=== PATIENT | female | born 1980 | race Caucasian/White ===

== ENCOUNTER 2023-09-17 00:37 | Emergency (ER) | payer BC, SELFPAY ==
[2023-09-17 00:50] VITALS: BP 117/79; PULSE 78; RESP 18; TEMP 36.6; O2SAT 98; BMI 25.1
--- NOTE | 2023-09-17 01:24 | ED_ITS ---
HPI - General Adult General Chief complaint: Ear/Nose/Throat Problem Stated complaint: ear infection, congestion, vomiting Time Seen by Provider: 09/17/23 00:47 History of Present Illness HPI narrative: 2d of bilat ear pain, nasal drainage, sore throat, chills/ hot flashes, vomit x1. pt took ibuprofen at 2130. 42-year-old woman presenting to the emergency department with concern of a couple of days of ear pain nasal drainage and congestion, sore throat. She has been alternating feeling chilled and hot. Has vomited. Is not complaining of abdominal pain. Has treated with ibuprofen. No rashes. Do not believe has measured a fever specifically. Related Data Previous Rx's Medication Instructions Recorded benzonatate 200 mg capsule 200 mg PO BID-TID PRN cough #21 09/17/23 caps Allergies Allergy/AdvReac Type Severity Reaction Status Date / Time acetaminophen [From Vicodin] AdvReac Verified 09/17/23 00:53 hydrocodone [From Vicodin] AdvReac Verified 09/17/23 00:53 Penicillins AdvReac Verified 09/17/23 00:53 Review of Systems Status of ROS: Reports: 6 or more systems reviewed and unremarkable except as noted in History and below PFSH PFSH Social History Non-prescribed substance use: denies use Exam Narrative: Exam Narrative: Pleasant. Laryngitic. Congested nasopharynx. Oropharynx is generally irritated/erythematous. No cervical lymphadenopathy. Left TM with some bulging erythematous area but generally not thickened. Seems to be more fluid affect. Right TM seems have perforation around the malleus. No inflammatory changes. No facial swelling or erythema though sore to palpation over the forehead. Lungs are otherwise clear. Heart in regular rate and rhythm. Extremities are well perfused without edema. Abdomen nontender. Const: Vital Signs, click to edit/add: Vital Signs - 24 hr 09/17/23 00:50 09/17/23 02:27 09/17/23 02:28 Temperature 97.8 F 97.8 F 97.8 F Pulse Rate [Pulse Oximeter] 78 71 71 Respiratory Rate 18 18 18 Blood Pressure [Ri ght Upper Arm] 117/79 121/78 121/78 Pulse Oximetry 98 98 Oxygen Delivery Me thod Room Air Room Air Documenting provider has reviewed patient's vital signs: yes Course Vital Signs Vital signs: Initial Vital Signs Temperature 97.8 F 09/17/23 00:50 Temperature Source Temporal Artery Scan 09/17/23 00:50 Pulse Rate 78 09/17/23 00:50 Respiratory Rate 18 09/17/23 00:50 Blood Pressure 117/79 09/17/23 00:50 Blood Pressure Mean 91 09/17/23 00:50 Blood Pressure Position Sitting 09/17/23 00:50 Pulse Oximetry 98 09/17/23 00:50 Oxygen Delivery Method Room Air 09/17/23 00:50 Vital Signs Temperature 97.8 F 09/17/23 00:50 Pulse Rate 78 09/17/23 00:50 Respiratory Rate 18 09/17/23 00:50 Blood Pressure 117/79 09/17/23 00:50 Pulse Oximetry 98 09/17/23 00:50 Oxygen Delivery Method Room Air 09/17/23 00:50 Temperature 97.8 F 09/17/23 02:28 Pulse Rate 71 09/17/23 02:28 Respiratory Rate 18 09/17/23 02:28 Blood Pressure 121/78 09/17/23 02:28 Pulse Oximetry 98 09/17/23 02:27 Oxygen Delivery Method Room Air 09/17/23 02:27 Medications Administered Medications: Discontinued Medications Generic Name Dose Route Start Last Admin Trade Name Freq PRN Reason Stop Dose Admin Ondansetron HCl 4 mg 09/17/23 01:37 09/17/23 01:48 Ondansetron Odt 4 Mg Tab PO 09/17/23 01:38 4 mg ONCE ONE Administration Oxymetazoline HCl 1 spray 09/17/23 02:15 09/17/23 02:18 Oxymetazoline 0.05% Nasal [place] NOSTRIL-B 1 spray BID PRN Administration congestion Pseudoephedrine HCl 60 mg 09/17/23 01:37 09/17/23 01:48 Pseudoephedrine Hcl 30 Mg Tablet PO 09/17/23 01:38 60 mg ONCE ONE Administration Medical Decision Making MDM Narrative Medical decision making narrative: Considering community prevalence I would screen for COVID and influenza. Can use triple swab. Otherwise would suspect other nonspecific viral process. Does not have bacterial pharyngitis or frankly an ear infection. Does appear to possibly have a perforation in the TM. As noted has laryngitis. Did offer a dose of Zofran in the emergency department. Triple swab was negative. Stable vitals in the ER Demonstrating some labored breathing at 1 point primarily due to nasal congestion it appeared. Given dosing of Afrin/oxymetazoline in the emergency depart. Sent with this bottle. See patient discharge plan for further discussion Lab Data Lab results reviewed: Yes I reviewed the patient's lab results Labs: Lab Results 09/17/23 Range/Units 00:50 SARS-CoV-2 (PCR) Negative SARS-CoV-2 (Negative) Influenza Type A (PCR) Negative PCR FLU A (Negative) Influenza Type B (PCR) Negative PCR FLU B (Negative) RSV (PCR) Negative PCR RSV (Negative) Discharge Plan Discharge Clinical Impression: Dysfunction of eustachian tube, URI (upper respiratory infection), Laryngitis, Sinusitis Patient Disposition: Home, Self-Care Condition: Improved Additional Instructions: Focus on hydration. I am not sure you have an allergy to acetaminophen. I wonder if that was some nausea from hydrocodone that is also in Vicodin. If you are not allergic, can take up to 1000 mg of acetaminophen per dose. Can also take up to 800 mg of ibuprofen per dose. Your being given a bottle of Afrin (oxymetazoline) nasal spray. You can use that temporarily for nasal decongestion. Can place 2 squirts in each nostril twice daily for up to 5 days at a time but then should give it a break. One of the risks of using it for prolonged period of time is that you can get rebound congestion. Consider sleeping in the midst of a cool mist humidifier. Neti pot and nasal saline rinses might be helpful. Follow kit instructions. Pseudoephedrine can be helpful for drying and decongestion. 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 I like the 12 hour formulation. Might try anesthetic throat lozenges or sprays like Sucrets or Chloraseptic. Can try cough syrup containing guaifenesin and dextromethorphan -- Delsym is one brand to consider if not buying generic It seems to me that you have of perforation of your right tympanic membrane. Your left one was somewhat deformed I think from recent fluid shifts. Consider follow-up with ear nose and throat provider once you're feeling better for further evaluation. Prednisone from [facility] Prescriptions: New benzonatate 200 mg capsule 200 mg PO BID-TID PRN (Reason: cough) Qty: 21 1RF Rx Instructions: Especially for cough that seems to be in the throat Follow Up/Referrals: Provider,Not a Local [Primary Care Provider] - Stand Alone Forms: [employer] Info Instructions
[2023-09-17 01:31] LABS: PCR FLU A Negative PCR FLU A (Negative); PCR FLU B Negative PCR FLU B (Negative); PCR RSV Negative PCR RSV (Negative); SARS PCR* Negative SARS-CoV-2 (Negative)
[2023-09-17] MEDS: ONDANSETRON ODT 4 MG TAB PO (01:48)
[2023-09-17] MEDS: PSEUDOEPHEDRINE HCL 30 MG TABLET 60 MG PO (01:48)
[2023-09-17] MEDS: OXYMETAZOLINE 0.05% NASAL SPRAY 1 SPRAY NOSTRIL-B (02:18)
[2023-09-17 02:27] VITALS: BP 121/78; PULSE 71; RESP 18; TEMP 36.6; O2SAT 98
[2023-09-17 02:28] VITALS: BP 121/78; PULSE 71; RESP 18; TEMP 36.6
== END 2023-09-17 02:28 | disposition home or self-care (01) ==
PROVIDERS: Emergency Provider Family Medicine
DX: J06.9 Acute upper respiratory infection, unspecified (principal); J32.9 Chronic sinusitis, unspecified; H69.93 Unspecified Eustachian tube disorder, bilateral
CPT/HCPCS: 87631; 99283; 99284; A9270

== ENCOUNTER 2023-10-15 11:42 | Emergency (ER) | payer BC, SELFPAY ==
[2023-10-15 11:48] VITALS: BP 116/79; PULSE 58; RESP 20; TEMP 36.4; O2SAT 97; BMI 26.6
--- NOTE | 2023-10-15 12:04 | CT_ITS ---
Patient: WHITNEY ALDANA Facility:?[facility] Patient ID:?[id number] Site Patient ID:?[id number]. Site :?[id number] Study:?CT-Temporal Bone IACS WO-10/15/2023 1:10:19 PM Ordering Physician:KYAW Final Report: INDICATION: Left ear pain, headache TECHNIQUE: CT of the temporal bones without contrast. Coronal and axial small field of view reconstructions of both temporal bones are included. COMPARISON: CT head/IAC report 11/22/2020 FINDINGS: RIGHT temporal bone: External ear: Normal imaged periauricular soft tissues. Normal external auditory canal. Normal tympanic membrane. Middle ear: Nonspecific low attenuation opacification of a few mastoid air cells, favored incidental and similar to prior report. Clear epitympanum, mesotympanum and hypotympanum. Normal ossicular chain. Clear oval and round windows. Normal facial nerve canal. Inner ear: Normal mineralization of the otic capsule. Normal cochlea, vestibule, semicircular canals and vestibular aqueduct. Normal internal auditory canal. Vascular: Normal carotid canal and jugular fossa. LEFT temporal bone: External ear: Normal imaged periauricular soft tissues. Normal external auditory canal. Normal tympanic membrane. Middle ear: Nonspecific low-attenuation opacification of a few mastoid air cells, favored incidental and similar to prior report. Clear epitympanum, mesotympanum and hypotympanum. Normal ossicular chain. Clear oval and round windows. Normal facial nerve canal. Inner ear: Normal mineralization of the otic capsule. Normal cochlea, vestibule, semicircular canals and vestibular aqueduct. Normal internal auditory canal. Vascular: Normal carotid canal and jugular fossa. Imaged head: Lobulated mucosal thickening along the inferior maxillary sinuses, potentially mucous retention cysts/polyps. No sinonasal air-fluid level. Included orbits and intracranial structures are unremarkable for technique. The temporomandibular joints are symmetric and unremarkable. IMPRESSION: 1. Unremarkable CT of the bilateral temporal bones. 2. Bilateral inferior maxillary sinus mucous retention cysts/polyps, without air-fluid level. Please note that all CT scans at this facility use dose modulation, iterative reconstruction, and/or weight-based dosing when appropriate to reduce radiation dose to as low as reasonably achievable. Dictated by Briana Michael MD @ 10/15/2023 1:21:57 PM Signed by:?Briana Michael MD @10/15/2023 1:21:57 PM (Electronic Signature)
--- NOTE | 2023-10-15 12:10 | ED_ITS ---
HPI - Headache General Date Seen: 10/15/23 Chief Complaint: Headache/Migraine Stated Complaint: migraine Time Seen by Provider: 10/15/23 11:43 Source: patient Mode of arrival: ambulatory Limitations: no limitations History of Present Illness HPI Narrative: Patient is a 48-year-old female presenting with left ear pain and a headache. She states she feels like she is having a migraine. She rarely gets migraines but states when they occur they are severe like her current 1 is. Admits to photophobia. Also states she is having severe left ear pain and pain behind the left ear. No history of ear problems she states. Denies fevers, chills, chest pain, shortness of breath, lightheadedness, dizziness, weakness, numbness, abdominal pain. Symptoms started yesterday and she has been taking ibuprofen for pain. Last taken at 04:30. Has not had any improvement in her symptoms with the medication. Denies having ear pain this bad before. No recent swimming. Does note she has had some drainage from the left ear. No other concerns noted Related Data Previous Rx's Medication Instructions Recorded azithromycin 250 mg tablet See Rx Instructions PO .COMPLEX #6 10/15/23 tabs Allergies Allergy/AdvReac Type Severity Reaction Status Date / Time acetaminophen [From Vicodin] AdvReac Verified 10/15/23 11:54 hydrocodone [From Vicodin] AdvReac Verified 10/15/23 11:54 Penicillins AdvReac Verified 10/15/23 11:54 terbutaline Allergy Severe cardiac Uncoded 10/15/23 11:54 arrest Review of Systems Status of ROS: Reports: 10 or more systems reviewed and unremarkable except as noted in History and below [facility] Social History Smoking Status: Never smoker Do you use any of these nicotine containing products: None Second hand tobacco smoke exposure: No How often do you have a drink containing alcohol: never AUDIT-C Alcohol total score: 0 Non-prescribed substance use: denies use Exam Narrative: Exam Narrative: Const: Well-nourished, Well-developed, in moderate distress Eyes: PERRL, no conjunctival injection, and symmetrical lids HENT: Atraumatic external nose and ears. Moist mucous membranes. Erythematous left tympanic membrane with notable tenderness to the auricle and to the mastoid process Neck: Symmetric, trachea midline, No thyromegaly. CVS: RRR, No murmurs or gallops. Peripheral pulses 2+ and equal in all extr emities RESP: Unlabored respiratory effort. Clear to auscultation bilaterally. GI: Nontender/Nondistended, No rebound or guarding. MSK:Extremities w/o deformity, Normal Active ROM Skin: Warm, Dry. No rashes or lesions. Neuro: Normal Muscle tone, No focal neurological deficits. Psych: Awake, Alert, & Oriented x3. Appropriate mood and affect. Const: Vital Signs, click to edit/add: Vital Signs - 24 hr 10/15/23 11:48 Temperature 97.5 F L Pulse Rate [Pulse Oximeter] 58 L Respiratory Rate 20 Blood Pressure [Ri ght Upper Arm] 116/79 Pulse Oximetry 97 Oxygen Delivery Me thod Room Air Course Vital Signs Vital signs: Initial Vital Signs Temperature 97.5 F L 10/15/23 11:48 Temperature Source Temporal Artery Scan 10/15/23 11:48 Pulse Rate 58 L 10/15/23 11:48 Pulse Rhythm Regular 10/15/23 11:48 Pulse Strength 3+ Normal 10/15/23 11:48 Respiratory Rate 20 10/15/23 11:48 Blood Pressure 116/79 10/15/23 11:48 Blood Pressure Mean 91 10/15/23 11:48 Blood Pressure Position Sitting 10/15/23 11:48 Pulse Oximetry 97 10/15/23 11:48 Oxygen Delivery Method Room Air 10/15/23 11:48 Vital Signs Temperature 97.5 F L 10/15/23 11:48 Pulse Rate 58 L 10/15/23 11:48 Respiratory Rate 20 10/15/23 11:48 Blood Pressure 116/79 10/15/23 11:48 Pulse Oximetry 97 10/15/23 11:48 Oxygen Delivery Method Room Air 10/15/23 11:48 Temperature 97.5 F L 10/15/23 11:48 Pulse Rate 58 L 10/15/23 11:48 Respiratory Rate 20 10/15/23 11:48 Blood Pressure 116/79 10/15/23 11:48 Pulse Oximetry 97 10/15/23 11:48 Oxygen Delivery Method Room Air 10/15/23 11:48 Medications Administered Medications: Discontinued Medications Generic Name Dose Route Start Last Admin Trade Name Freq PRN Reason Stop Dose Admin Diphenhydramine HCl 25 mg 10/15/23 12:03 10/15/23 12:40 Diphenhydramine 50 Mg/Ml Inj IVP 10/15/23 12:04 25 mg ONCE ONE Administration Lactated Ringer's 1,000 mls @ 1,000 mls/hr 10/15/23 12:03 10/15/23 12:30 Lactated Ringers 1000 Ml IV 10/15/23 13:02 1,000 mls/hr .Q1H ONE Administration Ketorolac Tromethamine 15 mg 10/15/23 12:03 10/15/23 12:39 Ketorolac 15 Mg/Ml Inj IVP 10/15/23 12:04 15 mg ONCE ONE Administration Metoclopramide HCl 10 mg 10/15/23 12:03 10/15/23 12:40 Metoclopramide Hcl 5 Mg/Ml Inj IVP 10/15/23 12:04 10 mg ONCE ONE Administration MDM - Headache MDM Narrative Medical decision making narrative: Patient is a 42-year-old female presenting for migraine and left ear pain. She is very tender at the mastoid process. She looks otherwise well but I am concerned about mastoiditis at this time. Will do a CT scan to better evaluate this. Left ear is tender to the touch and is erythematous tympanic membrane. Likely has some type of ear infection. Close to cbc and BMP. Migraine cocktail was ordered. Considering she states she has had migraines this bad before in there seems to be coming from her ear I do not believe a full CT scan of the head is necessary. Patient is feeling better after the medications. Lab work shows no concerning findings. CT scan returned showing no signs of mastoiditis or other concerning findings. This is reassuring. I will discharge her home with antibiotics to treat her otitis media. She is agreeable to this plan. Lab Data Labs: Lab Results 10/15/23 Range/Units 12:30 WBC 4.35 L (4.50-11.00) K/uL RBC 4.31 (4.00-5.20) m/uL Hgb 12.8 (12.0-16.0) gm/dL Hct 38.0 (33.0-51.0) % MCV 88 (80-100) fL MCH 30 (26-34) pg MCHC 34 (32-36) gm/dL RDW Coeff of Julia 12.2 (11.5-15.5) % Plt Count 249 (140-440) K/uL Neut % (Auto) 49.4 (42.0-72.0) % Lymph % (Auto) 35.4 (20-44) % [place] % (Auto) 9.0 (0.0-11.0) % Eos % (Auto) 5.3 (0.0-7.0) % Baso % (Auto) 0.9 (0.0-3.0) % Neut # (Auto) 2.10 (1.7-7.0) K/uL Lymph # (Auto) 1.50 (0.90-2.90) K/uL [place] # (Auto) 0.40 (0.00-0.90) K/UL Eos # (Auto) 0.20 (0.00-0.50) K/uL Baso # (Auto) 0.00 (0.00-0.30) K/uL Abs Immat Gran (auto) 0.00 (0.00-0.30) K/uL Imm/Tot Granulo (auto) 0.0 % Sodium 139 (135-149) mmol/L Potassium 3.5 L (3.6-5.1) mmol/L Chloride 109 (96-114) mmol/L Carbon Dioxide 24 (20-32) mmol/L Anion Gap 6 L (7-15) mEq/L BUN 14 (5-24) mg/dL Creatinine 0.6 (0.5-1.5) mg/dL Estimated Creat Clear 114.34 Estimated GFR 115 ml/min Glucose 87 (60-115) mg/dL Calcium 8.7 (8.4-10.6) mg/dL Imaging Data CT scan temporal bone: Attestation: I have reviewed the pertinent imaging results. Radiologist's impression: 1. Unremarkable CT of the bilateral temporal bones. 2. Bilateral inferior maxillary sinus mucous retention cysts/polyps, without air-fluid level. Please note that all CT scans at this facility use dose modulation, iterative reconstruction, and/or weight-based dosing when appropriate to reduce radiation dose to as low as reasonably achievable. Dictated by Briana Michael MD @ 10/15/2023 1:21:57 PM Discharge Plan Discharge Clinical Impression: Migraine Otitis media Qualifiers: Otitis media type: unspecified Laterality: left Qualified Code(s): H66.92 - Otitis media, unspecified, left ear Patient Disposition: Home, Self-Care Condition: Improved Instructions: Migraine Headache (ED) Additional Instructions: Take Tylenol and ibuprofen for pain. Use the antibiotics as directed. Return to emergency department for new or worsening symptoms. If you notice the symptoms seem to be persisting you can follow-up with the primary care provider. Prescriptions: New azithromycin 250 mg tablet See Rx Instructions .ROUTE .COMPLEX Qty: 6 0RF Rx Instructions: For 250 mg dose pack: take 500 mg today (day 1), then 250 mg for 4 days (days 2-5) Follow Up/Referrals: Provider,Not a Local [Primary Care Provider] - Stand Alone Forms: [employer] Info Instructions
[2023-10-15] MEDS: LACTATED RINGERS 1000 ML 1,000 ML IV (12:30)
[2023-10-15 12:37] LABS: Basophils Percent Auto 0.9 % (0.0-3.0); Eosinophils Percent Auto 5.3 % (0.0-7.0); Hemoglobin* 12.8 gm/dL (12.0-16.0); Lymphocytes Percent Auto 35.4 % (20-44); Mean Corpuscular HGB Conc 34 gm/dL (32-36); Mean Corpuscular Hemoglobin 30 pg (26-34); Mean Corpuscular Volume 88 fL (80-100); Neutrophils Percent Auto 49.4 % (42.0-72.0); Platelet Count* 249 K/uL (140-440); RDW Coefficient of Variation % 12.2 % (11.5-15.5); Red Blood Count 4.31 m/uL (4.00-5.20); White Blood Count* 4.35 K/uL (4.50-11.00)
[2023-10-15] MEDS: KETOROLAC 15 MG/ML inj IVP (12:39)
[2023-10-15] MEDS: diphenhydrAMINE 50 MG/ML inj 25 MG IVP (12:40)
[2023-10-15] MEDS: METOCLOPRAMIDE HCL 5 MG/ML INJ 10 MG IVP (12:40)
[2023-10-15 12:52] LABS: Chloride* 109 mmol/L (96-114); Potassium* 3.5 mmol/L (3.6-5.1); Sodium* 139 mmol/L (135-149)
[2023-10-15 12:55] LABS: Anion Gap 6 mEq/L (7-15); Blood Urea Nitrogen* 14 mg/dL (5-24); Carbon Dioxide* 24 mmol/L (20-32); Creatinine* 0.6 mg/dL (0.5-1.5); Est. Creatinine Clearance* 114.34; Estimated Glomerular Filt Rate 115 ml/min; Glucose* 87 mg/dL (60-115)
[2023-10-15 12:56] LABS: Calcium* 8.7 mg/dL (8.4-10.6)
[2023-10-15 13:58] LABS: Slide Review Reflex No
[2023-10-15 14:19] VITALS: BP 110/71; PULSE 68; RESP 18; O2SAT 99
== END 2023-10-15 14:20 | disposition home or self-care (01) ==
PROVIDERS: Emergency Provider Student in an Organized Health Care Education/Training Program
DX: G43.909 Migraine, unspecified, not intractable, without status migrainosus (principal); H66.92 Otitis media, unspecified, left ear
CPT/HCPCS: 36415; 70480; 80048; 85025; 96361; 96374; 96375; 99283; 99284; J1200; J1885; J2765; J7120

== ENCOUNTER 2023-12-26 05:49 | Emergency (ER) | payer BC, SELFPAY ==
[2023-12-26 05:55] VITALS: BP 106/72; PULSE 65; RESP 16; TEMP 36.1; O2SAT 97; BMI 26.8
--- NOTE | 2023-12-26 06:12 | ED.GENADULT ---
HPI - General Adult General Chief complaint: Cough Stated complaint: cough, ear pain Time Seen by Provider: 12/26/23 06:12 History of Present Illness HPI narrative: ear popped last night. sore throat this morning, began vomiting up large amounts of phlegm. pt reports having a headache. 43-year-old woman presenting to the emergency department with concern of recent right? ear discomfort. Seem to pop/clear last night. This morning developed sore throat. Has vomited or spit up good deal of phlegm. She has a headache. No fever noted. No unusual rashes. Was a little congested. Related Data Previous Rx's ?Medication ?Instructions ?Recorded azithromycin 250 mg tablet See Rx Instructions PO .COMPLEX #6 10/15/23 tabs Allergies Allergy/AdvReac Type Severity Reaction Status Date / Time acetaminophen [From Vicodin] AdvReac Verified 10/15/23 11:54 hydrocodone [From Vicodin] AdvReac Verified 10/15/23 11:54 Penicillins AdvReac Verified 10/15/23 11:54 terbutaline Allergy Severe cardiac Uncoded 10/15/23 11:54 arrest Review of Systems Status of ROS: Reports: 6 or more systems reviewed and unremarkable except as noted in History and below PFSH [facility] Social History Smoking Status: Never smoker Do you use any of these nicotine containing products: None Second hand tobacco smoke exposure: No How often do you have a drink containing alcohol: never AUDIT-C Alcohol total score: 0 Non-prescribed substance use: denies use service: No Exam Narrative: Exam Narrative: Pleasant. Seems uncomfortable. Breathing easily. No stridor but voice is hoarse. Lungs are clear. No facial swelling erythema or tenderness. Sounds a little congested. TMs with suggestion of fluid, full, pink but I do not see any infection or marked inflammation. Neck is supple without lymphadenopathy. Heart in regular rate and rhythm. Well-perfused peripherally. Const: Vital Signs, click to edit/add: Vital Signs - 24 hr 12/26/23 05:55 Temperature 96.9 F L Pulse Rate [Left P ulse Oximeter] 65 Respiratory Rate 16 Blood Pressure [Ri ght Upper Arm] 106/72 Pulse Oximetry 97 Oxygen Delivery Me thod Room Air Documenting provider has reviewed patient's vital signs: yes Course Vital Signs Vital signs: Initial Vital Signs Temperature 96.9 F L 12/26/23 05:55 Temperature Source Temporal Artery Scan 12/26/23 05:55 Pulse Rate 65 12/26/23 05:55 Pulse Rhythm Regular 12/26/23 05:55 Respiratory Rate 16 12/26/23 05:55 Blood Pressure 106/72 12/26/23 05:55 Blood Pressure Mean 83 12/26/23 05:55 Blood Pressure Position Sitting 12/26/23 05:55 Pulse Oximetry 97 12/26/23 05:55 Oxygen Delivery Method Room Air 12/26/23 05:55 Vital Signs Temperature 96.9 F L 12/26/23 05:55 Pulse Rate 65 12/26/23 05:55 Respiratory Rate 16 12/26/23 05:55 Blood Pressure 106/72 12/26/23 05:55 Pulse Oximetry 97 12/26/23 05:55 Oxygen Delivery Method Room Air 12/26/23 05:55 Temperature 96.9 F L 12/26/23 05:55 Pulse Rate 65 12/26/23 05:55 Respiratory Rate 16 12/26/23 05:55 Blood Pressure 106/72 12/26/23 05:55 Pulse Oximetry 97 12/26/23 05:55 Oxygen Delivery Method Room Air 12/26/23 05:55 Medications Administered Medications: Discontinued Medications Generic Name Dose Route Start Last Admin Trade Name Freq PRN Reason Stop Dose Admin Ketorolac Tromethamine 10 mg 12/26/23 07:44 12/26/23 07:50 Ketorolac 10 Mg Tablet PO 12/26/23 07:45 10 mg ONCE ONE Administration Medical Decision Making MDM Narrative Medical decision making narrative: She would appreciate something for pain. After discussion settled on oral ketorolac. Would screen otherwise for COVID influenza and strep I suppose. Otherwise appears to have URI. I think a popping of the ear that was described as related to fluid shifts. Labs are negative. Overall improved. Probably would benefit from course of prednisone, decongestant. See patient discharge plan for further discussion Lab Data Lab results reviewed: Yes I reviewed the patient's lab results Labs: Lab Results 12/26/23 Range/Units 06:25 SARS-CoV-2 (PCR) Negative SARS-CoV-2 (Negative) Influenza Type A (PCR) Negative PCR FLU A (Negative) Influenza Type B (PCR) Negative PCR FLU B (Negative) RSV (PCR) Negative PCR RSV (Negative) Group A Strep DNA NOT DETECTED (Not Detectd) Discharge Plan Discharge Clinical Impression: Laryngitis, URI (upper respiratory infection) Patient Disposition: Home w/ Parent or Adult Condition: Stable Additional Instructions: Focus on hydration. Consider sleeping under the mist of a cool mist humidifier. You might try 12 hour pseudoephedrine for drying/decongestion/ear clearing. Can take up to 800 mg of ibuprofen or up to 1000 mg of acetaminophen per dose. Alternative to the ibuprofen might be up to 500 mg naproxen 2 times daily. A course of prednisone from [facility] Prescriptions: No Action azithromycin 250 mg tablet See Rx Instructions .ROUTE .COMPLEX Qty: 6 0RF Rx Instructions: For 250 mg dose pack: take 500 mg today (day 1), then 250 mg for 4 days (days 2-5) Follow Up/Referrals: Provider,Not a Local [Primary Care Provider] - Stand Alone Forms: [employer] Info Instructions
[2023-12-26 07:05] LABS: Strep A DNA Probe* NOT DETECTED (Not Detectd)
[2023-12-26 07:24] LABS: PCR FLU A Negative PCR FLU A (Negative); PCR FLU B Negative PCR FLU B (Negative); PCR RSV Negative PCR RSV (Negative); SARS PCR* Negative SARS-CoV-2 (Negative)
[2023-12-26] MEDS: KETOROLAC 10 MG TABLET PO (07:50)
== END 2023-12-26 08:00 | disposition home or self-care (01) ==
PROVIDERS: Emergency Provider Family Medicine
DX: J04.0 Acute laryngitis (principal); J06.9 Acute upper respiratory infection, unspecified
CPT/HCPCS: 87631; 87651; 99283; 99284; A9270

== ENCOUNTER 2023-12-26 20:25 | Emergency (ER) | payer BC, SELFPAY ==
[2023-12-26 20:44] VITALS: BP 105/72; PULSE 67; RESP 16; TEMP 36.3; O2SAT 97; BMI 26.8
--- NOTE | 2023-12-26 21:04 | CRLHL7_ITS ---
For Patients: As a result of the Cures Act, medical imaging exams and procedure reports are released immediately into your electronic medical record. You may view this report before your referring provider. If you have questions, please contact your health care provider. INDICATION: Chest and back pressure, shortness of breath TECHNIQUE: Chest radiograph 2 views COMPARISON: None FINDINGS: Mediastinum: The mediastinum is normal in appearance. The heart silhouette is normal in size and morphology. Lung: Both lungs are unremarkable in appearance. No sign of pleural effusion seen. No pneumothorax is identified. Bone and Soft tissue: Unremarkable for age. IMPRESSION: 1. No acute cardiopulmonary disease is seen. Dictated by: Gene Whatley MD @ 12/26/2023 23:13:38 (Electronically Signed)
--- NOTE | 2023-12-26 21:06 | ED_ITS ---
HPI - Back Pain/Injury General Chief Complaint: Back Injury/Pain Stated Complaint: Shortness of breath, back/chest pain Time Seen by Provider: 12/26/23 20:57 History of Present Illness HPI Narrative: Patient is a 43-year-old woman who was here earlier today and diagnosed with laryngitis. She slept most of the day and now has pain extending from her back into her anterior chest on the left. She has had no productive cough she has had no fevers no chills no night sweats. She is a previous smoker and vapes regularly. She states she is not at this time. She takes no home medications. She states the pain is sharp with radiation anteriorly worse with a deep breath. Related Data Previous Rx's ?Medication ?Instructions ?Recorded azithromycin 250 mg tablet See Rx Instructions PO .COMPLEX #6 10/15/23 tabs Allergies Allergy/AdvReac Type Severity Reaction Status Date / Time acetaminophen [From Vicodin] AdvReac Verified 10/15/23 11:54 hydrocodone [From Vicodin] AdvReac Verified 10/15/23 11:54 Penicillins AdvReac Verified 10/15/23 11:54 terbutaline Allergy Severe cardiac Uncoded 10/15/23 11:54 arrest Review of Systems Status of ROS: Reports: 10 or more systems reviewed and unremarkable except as noted in History and below PFSH PFS Social History Smoking Status: Never smoker Do you use any of these nicotine containing products: None Second hand tobacco smoke exposure: No How often do you have a drink containing alcohol: never AUDIT-C Alcohol total score: 0 Non-prescribed substance use: denies use service: No Exam Narrative: Exam Narrative: EXAM GENERAL: Patient appears comfortable and well. EYES: No scleral icterus. LYMPH: No supraclavicular or cervical lymphadenopathy. SKIN: Visible skin seen during exam normal or with benign process only. EXT: No dependent lower extremity pedal edema. HEART: Regular rate and rhythm with no murmurs, rubs, or gallops. LUNGS: Clear to auscultation bilaterally with no crackles or wheezes. ABD: Soft, non tender, non distended. PSYCH: Good eye contact, speech is not pressured. Const: Vital Signs, click to edit/add: Vital Signs - 24 hr 12/26/23 20:44 Temperature 97.4 F L Pulse Rate [Left P ulse Oximeter] 67 Respiratory Rate 16 Blood Pressure [Ri ght Upper Arm] 105/72 Pulse Oximetry 97 Oxygen Delivery Me thod Room Air Course Course ED Course: Patient seen and examined. Chest x-ray D-dimer troponin EKG CBC comprehensive metabolic panel pending. Vital Signs Vital signs: Initial Vital Signs Temperature 97.4 F L 12/26/23 20:44 Temperature Source Temporal Artery Scan 12/26/23 20:44 Pulse Rate 67 12/26/23 20:44 Pulse Rhythm Regular 12/26/23 20:44 Respiratory Rate 16 12/26/23 20:44 Blood Pressure 105/72 12/26/23 20:44 Blood Pressure Mean 83 12/26/23 20:44 Blood Pressure Position Sitting 12/26/23 20:44 Pulse Oximetry 97 12/26/23 20:44 Oxygen Delivery Method Room Air 12/26/23 20:44 Vital Signs Temperature 97.4 F L 12/26/23 20:44 Pulse Rate 67 12/26/23 20:44 Respiratory Rate 16 12/26/23 20:44 Blood Pressure 105/72 12/26/23 20:44 Pulse Oximetry 97 12/26/23 20:44 Oxygen Delivery Method Room Air 12/26/23 20:44 Temperature 97.4 F L 12/26/23 20:44 Pulse Rate 67 12/26/23 20:44 Respiratory Rate 16 12/26/23 20:44 Blood Pressure 105/72 12/26/23 20:44 Pulse Oximetry 97 12/26/23 20:44 Oxygen Delivery Method Room Air 12/26/23 20:44 Medications Administered Medications: Generic Name Dose Route Start Last Admin Trade Name Freq PRN Reason Stop Dose Admin Ketorolac Tromethamine 30 mg 12/26/23 22:19 12/26/23 22:45 Ketorolac 30 Mg/Ml Inj IM 12/26/23 22:20 30 mg ONCE ONE Administration MDM - Back Pain/Injury MDM Narrative Medical decision making narrative: Patient is a 43-year-old woman who presents with pleuritic chest pain. She does have a normal EKG normal troponin normal D-dimer normal chest x-ray normal electrolytes normal white count. I did give her 30 mg of Toradol and discharged home to fill the prescription for prednisone that she was prescribed earlier in the week. She can take Tylenol as needed apply ice and follow up with her primary physician as needed. Differential diagnosis includes but not limited to acute myocardial infarction pulmonary embolism pulmonary infarct pneumonia pleural effusion. Pulmonary embolism. Lab Data Labs: Lab Results 12/26/23 Range/Units 21:37 WBC 5.67 (4.50-11.00) K/uL RBC 4.45 (4.00-5.20) m/uL Hgb 13.1 (12.0-16.0) gm/dL Hct 38.9 (33.0-51.0) % MCV 87 (80-100) fL MCH 29 (26-34) pg MCHC 34 (32-36) gm/dL RDW Coeff of Julia 12.1 (11.5-15.5) % Plt Count 144 (140-440) K/uL Neut % (Auto) 45.9 (42.0-72.0) % Lymph % (Auto) 38.1 (20-44) % [place] % (Auto) 9.3 (0.0-11.0) % Eos % (Auto) 6.0 (0.0-7.0) % Baso % (Auto) 0.7 (0.0-3.0) % Neut # (Auto) 2.60 (1.7-7.0) K/uL Lymph # (Auto) 2.16 (0.90-2.90) K/uL [place] # (Auto) 0.50 (0.00-0.90) K/UL Eos # (Auto) 0.34 (0.00-0.50) K/uL Baso # (Auto) 0.04 (0.00-0.30) K/uL Abs Immat Gran (auto) 0.00 (0.00-0.30) K/uL Imm/Tot Granulo (auto) 0.0 % D-Dimer Quant (PE/DVT) 0.25 (0.00-0.50) ug/ml Sodium 137 (135-149) mmol/L Potassium 4.1 (3.6-5.1) mmol/L Chloride 108 (96-114) mmol/L Carbon Dioxide 23 (20-32) mmol/L Anion Gap 6 L (7-15) mEq/L BUN 23 (5-24) mg/dL Creatinine 0.7 (0.5-1.5) mg/dL Estimated Creat Clear 97.01 Estimated GFR 110 ml/min Glucose 111 (60-115) mg/dL Calcium 8.4 (8.4-10.6) mg/dL Total Bilirubin 0.4 (0.1-1.5) mg/dL AST 23 (12-35) U/L ALT 13 (4-35) U/L Alkaline Phosphatase 54 (40-150) U/L Troponin I < 0.01 L (0.01-0.04) ng/mL Total Protein 5.7 L (6.0-8.3) g/dL Albumin 3.4 (3.3-5.0) g/dL Discharge Plan Discharge Clinical Impression: URI (upper respiratory infection) Patient Disposition: Home, Self-Care Condition: Stable Instructions: Upper Respiratory Infection (ED) Additional Instructions: Tylenol Prednisone as previously prescribed Ice Follow-up with your doctor as needed Activity Level: Other Discharge Diet: Other Prescriptions: No Action azithromycin 250 mg tablet See Rx Instructions .ROUTE .COMPLEX Qty: 6 0RF Rx Instructions: For 250 mg dose pack: take 500 mg today (day 1), then 250 mg for 4 days (days 2-5) Follow Up/Referrals: Provider,Not a Local [Primary Care Provider] - Stand Alone Forms: [employer] Info Instructions
--- OUTSIDE RECORDS SUMMARY | 2023-12-26 21:23 | XMS_ITS | Clinical Summary ---
Author Organization [facility] Address [address] [place] [id number] Care Team Providers Care Pipe Puller Name Role Phone Cathy Chiang PA-C Primary Care Provider [phone] Allergies Active Allergy Reactions Criticality Noted Date Comments Bee Venom Protein (Honey Bee) 10/31/2021 Methocarbamol Vomiting 07/03/2017 Other reaction(s): Hypotension Hydrocodone-Acetaminophen 10/31/2021 Penicillins 10/31/2021 Phosphoric Acid Anaphylaxis High 02/19/2015 Quetiapine High 06/09/2020 Other reaction(s): Hypotension 06/08- patient came in orthostatic after being started on seroquel/remeron and strattera Terbutaline 10/31/2021 Tributyl Phosphate Unknown 02/19/2015 Medications Medication Sig Dispensed Refills Start Date End Date Status ibuprofen (ADVIL;MOTRIN) 200 mg oral tablet Take 1 tablet (200 mg) by mouth once a day as needed. 08/27/2022 Active ROZEREM 8 mg oral Tab Take 1 tablet (8 mg) by mouth once daily. 09/18/2022 Active cloNIDine (CATAPRES) 0.3 mg oral tablet Take 1 tablet (0.3 mg) by mouth at bedtime. 03/02/2023 Active lamoTRIgine (LAMICTAL) 100 mg oral tablet Take 1 tablet (100 mg) by mouth once daily. 03/27/2023 Active topiramate (TOPAMAX) 25 mg oral tablet Take 1 tablet (25 mg) by mouth at bedtime. 03/27/2023 Active Cholecalciferol, Vitamin D3, 50 mcg (2,000 unit) oral capsule Take 1 capsule by mouth once daily. 03/24/2023 Active VENTOLIN HFA 90 mcg/actuation Inhl inhaler Inhale 2 puffs every 4 (four) hours as needed for shortness of breath or wheezing. 03/02/2023 Active predniSONE (DELTASONE) 10 mg oral TabIndications:Nasal turbinate hypertrophy,Acute non intractable tension-type headache Take 4 tabs daily for 2 days, then 3 tabs daily for 2 days, then 2 tabs daily for 2 days, then 1 tab daily for 2 days. 20 tablet 07/09/2023 Active ibuprofen (ADVIL) 800 mg oral tablet Take 1 tablet (800 mg) by mouth every 8 (eight) hours as needed (take with food). 30 tablet 1 07/09/2023 Active acetaminophen (TYLENOL) 500 mg oral tablet Take 1-2 tablets (500-1,000 mg) by mouth every 6 (six) hours as needed. 60 tablet 1 07/09/2023 Active Active Problems Problem Noted Date Diagnosed Date Hoarseness 04/24/2023 Chronic nasal congestion 04/24/2023 Alcohol use disorder, severe, dependence 023 Suicide attempt 07/22/2022 Amphetamine use disorder, moderate, dependence 0 02/10/2019 Borderline personality disorder 02/10/2019 Posttraumatic stress disorder 02/10/2019 Family history of MS (multiple sclerosis) 2017 Bipolar 1 disorder, mixed 01/09/2015 Immunizations Name Administration Dates Next Due Influenza 05/01/2021,04/18/2017 Influenza Unspecified 04/18/2017 Pfizer 12+ Yrs MONOVALENT COVID Vaccine 11/06/19 22 Pfizer 12+ Yrs MONOVALENT COVID Vaccine (purple cap) 07/19/2021,05/01/2021 Tdap 10/09/2015 Social History Tobacco Use Types Packs/Day Years Used Date Smoking Tobacco: Former Cigarettes Passive Smoke Exposure: Never Smokeless Tobacco: Never Tobacco Cessation:Counseling Given: Not Answered Alcohol Use Standard Drinks/Week Comments Not Currently 0 (1 standard drink = 0.6 oz pur e alcohol) sober house PHQ-2 Answer Date Recorded PHQ2 Total 1 07/09/2023 Sex and Gender Information Value Date Recorded Sex Assigned at Not on file Gender Identity Not on file Sexual Orientation Not on file Last Filed Vital Signs Vital Sign Reading Time Taken Comments Blood Pressure 118/60 07/09/2023 7:31 AM [employer] Pulse 61 07/09/2023 7:31 AM [employer] Temperature 36.7 ??C (98.1 ??F) 07/09/2023 7:31 AM CS T Respiratory Rate 15 04/01/2023 8:02 AM CDT Oxygen Saturation 98% 07/09/2023 7:31 AM [employer] Inhaled Oxygen Concentration - - Weight 74.4 kg (164 lb) 07/09/2023 7:31 AM [employer] Height 168.9 cm (5' 6.5) 04/01/2023 8:02 AM CDT Body Mass Index 26.07 04/01/2023 8:02 AM CDT Plan of Treatment Health Maintenance Due Date Last Done Comments Diabetes Screening 1980 Hepatitis C Screening 1980 Pap Smear 1980 Pneumococcal <65 (1 of 2 - PCV) 1986 COVID-19 Vaccine (2 4 season) 2023 11/05/2021, 07/19/2021, 05/01/2021 Mammogram Screening 08/12/2023 08/12/2022, 08/12/2022, 09/12/2021, Additional history exists Influenza Vaccine (Season Ended) 2024 05/01/2021, 04/18/2017, 04/18/2017 Anxiety Follow-Up (JOHN-7) 07/09/2024 07/09/2023, Depression Follow-Up (PHQ-9) 07/09/2024 07/09/2023, 04/01/2023 Adult Tetanus Booster 10/08/2025 10/09/2015 Lipid Screening 07/22/2027 07/22/2022 (Prev iously completed) Procedures Procedure Name Priority Date/Time Associated Diagnosis Comments MAMMO ELENA DIAG BILAT Routine 08/12/2022 9:26 AM [employer] from Last 3 Months or Most Recently Relevant to Health Maintenance Care Teams Pipe Puller Relationship Specialty Start Date End Date Cathy Chiang, PACodyC [address] [place] [address] PCP - General Family Medicine 04/01/23
--- OUTSIDE RECORDS SUMMARY | 2023-12-26 21:24 | XMS_ITS | Clinical Summary ---
Author Organization [facility] Address [place], [place] [address] Care Team Providers Care Metal Tile Setter Name Role Phone Armaan Ayala MD Primary Care Prov ider Unavailable Allergies Active Allergy Reactions Criticality Noted Date Comments Penicillins *Unknown 02/19/2015 Penicillins Hives 11/05/2009 Phosphoric Acid Anaphylaxis High 02/19/2015 Methocarbamol Hypotension,Vomiting 07/03/2017 Quetiapine Hypotension High 06/09/202006/08- patient came in orthostatic after being started on seroquel/remeron and strattera Terbutaline Other - Describe In Comment Field 03/17/2012 convulsions Tributyl Phosphate *Unknown 02/19/2015 Venom-Honey Bee Angioedema High 11/07/2020 Hydrocodone-Acetaminop hen Respiratory Distress 12/22/2016 Medications No known medications Active Problems Problem Noted Date Diagnosed Date Syncope and collapse 06/08/2020 Borderline personality disorder 02/10/2019 Amphetamine use disorder, moderate, dependence 0 02/10/2019 Posttraumatic stress disorder 02/10/2019 Family history of MS (multiple sclerosis) 2017 No-show for appointment 08/10/2017 RUQ pain 10/05/2015 Acute cystitis without hematuria 10/05/2015 Cervical high risk HPV (human papillomavirus) te st positive 06/14/2015 Overview: 06/14/15 NIL/HPV+, HPV 16/18 negative 05/06/18 NIL/HPV+ Plan:Colposcopy 05/25/2018 Bipolar 1 disorder, mixed 01/09/2015 cardiac anomaly complicating 201 2 03/19/2012 Insomnia, unspecified 12/12/2009 Gestational diabetes 2012 Resolved Problems Problem Noted Date Diagnosed Date Resolved Date labor in third trimester 12/05/2015 01/18/2016 History of delivery 07/17/2015 01/18/2016 High risk due to h istory of previous obstetrical problem in third trimester 05/21/2015 01/18/2016 Posttraumatic stress disorder 01/09/2015 06/20/2020 Breakthrough bleeding on Nexplanon 10/10/2013 05/14/2015 Spontaneous vaginal delivery 04/03/2012 05/14/2015 Unspecified high-risk pregna ncy 2011--PTL/[id number] wk, GDDM insulin, baby heart changes, 90lb weight gain 03/24/2012 01/18/20 16 Overview: NEXT VISIT ALERTS: 03/30 - Needs HSD adult admit navigator completed at next visit PN labs scanned in from 12/2011 (under incoming records) Staying at [facility] Was hospitalized from 03/17-03/26, PTL LAST GROWTH: 03/19 33w 1d 57% KISHAN 18.1 cm TESTING PLANS: Limited ultrasound weekly, BPP weekly, weekly OB Visits PRIMARY DIAGNOSIS: 03/19 ECHO () Right Ventricular enlargement with poor systolic function Mild to moderate tricuspid valve regurgitation Small pericardial effusion Possible restrictive PDA and pulmonary hypertension Trivial Aortic valve stenosis Labor 03/17- Inpatient at [facility]-D/C'ed 03/26 GDM Betamethasone 03/17-03/18 03/17 GBS NEGATIVE REFERRING PHYSICIAN: Gabi Padilla SPECIALISTS: Cardiology 03/19 Jaun Zamora BOOSTER PUMP OILER: [facility] CARE COORDINATION: Antonieta Arzate Outpatient, Lucia Snider RN CONSULTS: 03/23 Delphine met with inpatient [facility]ura moon NICU 03/19 Per repeat ECHO 3 weeks 03/25-05/06 reservation at [facility] PROCEDURES: MEDS: 03/17-03/18 Betamethasone given Vitamin D plans: 03/25 Prior Auth for Nifedipine GRANTED/faxed to [facility] pharmacy Pertinent/Abnormal LABS: 03/23 Negative Amnisure Rapid GBS NEGATIVE Blood type: O POSTIVE NURSING: Last Tdap vaccine: Flu vaccine given: Non BMI Optimal wt gain Plan for Gestational Diabetes screening:Gest. Diabetic- insulin controlled Planning/Not planning Tubal Ligation Is/Is not Medical assistance GENETICS: Date: Counselor: Plan: MD PLAN OF CARE: labor 03/17/2012 09/14/2012 Supervision of high-risk 03/10/2012 09/14/2012 Overview: Dr. Padilla will resume patient's care following delivery. Would like to see her at 8 weeks . Per Jennifer Pérez (03/24/12) Premature uterine contractions 04/10/2010 09/14/2012 Gestational diabetes 015 Encounters Date Type Department Care Team Description 11/18/2023 1:55 PM CDT Office Visit [facility] [address] [place] [address] Valarie Ridley DO Occ Med (post hospital) 11/18/2023 Travel 11/16/2023 Telephone [facility] [address] [place] [address] Valarie Ridley DO Questions 11/12/2023 11:00 AM CDT - 11/12/2023 12:36 PM CDT Emergency [address] [address] Isaiah Pierre, Laceration of right hand without foreign body, initial encounter (Primary Dx) Discharge Disposition: Home Self Care 11/12/2023 Travel from Last 3 Months Immunizations Name Administration Dates Next Due COVID-19 vaccine (Hupu 30mcg/0.3mL) P F, MDV 07/19/2021,05/01/2021 Influenza A (H1N1), Inactivated (Age >=3 Years) 11/05/2009 Influenza Virus, Unspecified 04/18/2017 Influenza, IIV4 05/01/2021,04/18/2017 Tdap 11/12/2023,10/09/2015 Family History Medical History Relation Name Comments Alcoholism Father Other Father emphysema/MS Cancer Maternal Grandfather leukemi a Arthritis Mother Hypertension Mother Other Mother MS Cancer-breast Other m gr aunt Diabetes Paternal Grandmother insulin dependent diabetic Cancer-colon No Family History Cancer-ovarian No Family History Relation Name Status Comments Brother Alive Daughter 1 Alive Daughter 2 Alive Father Alive Maternal Grandfather Maternal Grandmother Mother Alive Other m gr aunt Paternal Grandfather Paternal Grandmother Sister Alive Son Alive Social History Tobacco Use Types Packs/Day Years Used Date Smoking Tobacco: Former Cigarettes Q uit: 12/05/2020 Smokeless Tobacco: Former Tobacco Cessation:Ready to Q uit: No; Counseling Given: Yes Alcohol Use Standard Drinks/Week Comments No 0 (1 standard drink = 0.6 oz pur e alcohol) PHQ-2 Answer Date Recorded PHQ-2 TOTAL SCORE 0 11/18/2023 Social Connections Answer Date Recorded Frequency of Communication with Friends and Fami ly Not on file 07/13/2021 Financial Resource Strain Answer Date R ecorded Difficulty of Paying Living Expenses Not on file 07/13/2021 Difficulty of Paying Living Expenses Not on file 07/13/2021 Sex and Gender Information Value Date Recorded Sex Assigned at Not on file Gender Identity Not on file Sexual Orientation Not on file Obstetrics History Para Term AB IAB SAB Ectopic Multiple Livin g Live Births 7 4 2 2 3 0 2 0 0 4 1 Date Outcome GA Total Labor Labor/2nd/3rd Weight Sex Type Anes PTL Amelia A1 A5 Name Clin SAB SAB 2000 Term 40w 4d 3.35 kg (7 lb 6 oz) F Vag Y Livin g Coraly nn Complications:None Comments:adopted to [facility] member 2006 AB 11w 0d 2009 Term 38w 0d 2.66 kg (5 lb 14 oz) F Vag N Livin g Clara Complications:Other Excessiv e Bleeding 2011 35w 2d 3.29 kg (7 lb 4.1 oz) M Vag Y Livin g 7 8 Kip Delivery Location:[facility] in/near hospital x6wk with PTL Comments:cardiac anoma ly in baby 2015 36w 3d 2.61 kg (5 lb 12 oz) F Vag IV Meds Y Livin g [address] Cuellar on Complications:None Delivery Location:[facility] Last Filed Vital Signs Vital Sign Reading Time Taken Comments Blood Pressure 126/62 11/18/2023 2:03 PM CDT Pulse 60 11/18/2023 2:03 PM CDT Temperature 36.8 ??C (98.2 ??F) 11/12/2023 1 1:02 AM CDT Respiratory Rate 16 11/12/2023 11:0 2 AM CDT Oxygen Saturation 98% 11/12/2023 11: 02 AM CDT Inhaled Oxygen Concentration - - Weight 75.7 kg (166 lb 12.8 oz) 11/18/2023 2:03 PM CDT Height 167.6 cm (5' 6) 11/12/2023 11:0 2 AM CDT Body Mass Index 26.92 11/12/2023 11:02 AM CDT Plan of Treatment Health Maintenance Due Date Last Done Comments Pneumococcal series for age 6-64 (1 of 2 - PCV) 1986 Hepatitis C screening for ag e 18-79 1998 Pap test for age 21-65 05/06/2021 8, 05/06/2018, 06/14/2015, Additional history exists BMI (ht and wt on same day) for age 18+ 09/12/2022 09/12/2021, 03/08/2019, 07/30/2018, Additional history exists COVID-19 vaccine series ( season) 2023 11/05/2021, 07/19/2021, 05/01/2021 Influenza for age 9-49 03/13/2024 , 04/18/2017, 04/18/2017, Additional history exists Depression screening for age 12+ 11/17/2024 11/18/2023, 10/25/2019, 02/11/2019, Additional history exists Tetanus booster 11/11/2033 11/12/2023, 10/09/2015 HIV for age 15-65 Completed 06/18/2015, 11/05/2009 Tdap Completed 11/12/2023, 10/09/2015 Goals Goal Patient Goal Type Associated Problems Recent Progress Patient-Stated? Author Other - Free Text General Yes Paz Rocha LICSW Note: Yara and headline writer will identify a PCP at [facility] other General Yes Paz Rocha LICSW Note: Yara and Milling General Superintendent will work on finding a Trauma informed EMDR therapist. Other - Free Text General Yes Paz Rocha LICSW Note: Yara and Milling General Superintendent will work on Income based housing options other General Yes Paz Rocha LICSW Note: Milling General Superintendent will help Yara find clothing options for kids going back to school Procedures Procedure Name Priority Date/Time Associated Diagnosis Comments XR HAND 3 VIEWS RIGHT STAT 11/12/2023 11:59 AM CDT PLANT CARE WORKER THIN PREP PAP SCREEN IMAGED Routine 05/06/2018 1:50 PM CDT Screening for cervical cancer ANTI HIV 1/2 Routine 06/18/2015 1:54 PM SYSTEMS TEST TECHNICIAN Supervision of other normal , antepartum, first trimester from Last 3 Months or Most Recently Relevant to Health Maintenance Results * XR HAND 3 VIEWS RIGHT (11/12/2023 11:59 AM CDT) Anatomical Region Laterality Modality HANDS, HAND R Computed Radiogr aphy 11/12/2023 11:5 9 AM CDT Impressions 11/12/2023 12:07 PM CDT No radiodense foreign body is identified. No acute right hand fracture or dislocation. Normal joint spacing. Narrative 11/12/2023 12:07 PM CDT For Patients: As a result of the Cures Act, medical imaging exams and procedure reports are released immediately into your electronic medical record. You may view this report before your referring provider. If you have questions, please contact your health care provider. EXAM: XR HAND 3 VIEWS RIGHT LOCATION: [facility] DATE: 11/12/2023 INDICATION: Trauma, hand injury, concern for foreign body. COMPARISON: None. Procedure Note Kraig Tee MD - 11/12/2023 For Patients: As a result of the Cures Act, medical imagingexams and procedure reports are released immediately into your electronicmedical record. You may view this report before your referring provider.If you have questions, please contact your health care provider. EXAM: XR HAND 3 VIEWS RIGHT LOCATION: [facility] DATE: 11/12/2023 INDICATION: Trauma, hand injury, concern for foreign body. COMPARISON: None. IMPRESSION: No radiodense foreign body is identified. No acute right hand fracture ordislocation. Normal joint spacing. Isaiah Pierre DO GENERAL ANN GING * PLANT CARE WORKER THIN PREP PAP SCREEN IMAGED (05/06/2018 1:50 PM CDT) Case Report Gynecologic Cytology Report ? Case: [id number] ? Authorizing Provider: ??Justyna Houser MD ? Collected: ? 05/06/2018 1350 ? Ordering Location: ? [facility] ?Received: ?05/06/2018 1528 ? Clinic ? First Screen: ?Isaiah Jimenez ? Rescreen: ?Zohra Sapp ? Specimen: ?PLANT CARE WORKER ThinPrep Vial Screening, Cervical ? 05/17/2018 2:26 PM [email or web address] INTERPRETATION /RESULT NEGATIVE FOR INTRAEPITHELIAL LESION OR MALIGNANCY (NIL) (none) 05/17/2018 2:26 PM [facility] NISM(S) Shift in cortney suggestive of bacterial vaginosis 05/17/2018 2:26 PM [email or web address] SPECIMEN ADEQUACY Satisfactory for evaluation Endocervical component present 05/17/2018 2:26 PM [facility] HPV REQUEST HPV and PAP 05/17/2018 2:26 PM SYSTEMS TEST TECHNICIAN [facility] Date of LMP 04/06/2018 05/17/2018 2:26 PM SYSTEMS TEST TECHNICIAN [facility] Last Pap Date 06/14/15 05/17/2018 2:26 PM SYSTEMS TEST TECHNICIAN [facility] Last Pap Result NIL 05/17/2018 2:26 PM SYSTEMS TEST TECHNICIAN [facility] Abnormal Pap or [place] Bx in last 5 years Yes 05/17/2018 2:26 PM [facility] Menstrual Status Regular Periods 05/17/2018 2:26 PM [facility] [place] Bx Done Today No 05/17/2018 2:26 PM [facility] Additional Information None given 05/17/2018 2:26 PM [facility] Automated Review Failed 05/17/2018 2:26 PM [facility] Comment:Processing failed, m anual screening required. ThinPrep Imaging System, [employer] ANCILLARY TESTING PLANT CARE WORKER HPV Ordered, Please see separate report 05/17/2018 2:26 PM SYSTEMS TEST TECHNICIAN [facility] Note The pap test is a screening technique, not a diagnostic procedure. ??It is used primarily to screen for squamous cancers and precursor lesions. ??Published studies have shown that it is subject to both false negative and false positive results. ??The pap test should not be used as the sole means to diagnose or exclude pre-malignant and malignant lesions. Cytology is screened and interpreted at [facility] - [address], [place] [address] and [facility] - [address]; [place] [address] and [facility] - [address]; [place] [address] and [facility] [address]; [place] [address] 05/17/2018 2:26 PM SYSTEMS TEST TECHNICIAN [facility] Other (Cervical) Non-Blood / Unknown 05/06/2018 1:50 PM CDT 05/06/2018 3:28 PM CDT Justyna Houser MD PATHOLOGY/CYTOLOGY Performing Organization Address City/[facility] Co de Phone Number [facility] [address] [place] [address], * ANTI HIV 1/2 (06/18/2015 1:54 PM SYSTEMS TEST TECHNICIAN) HIV-1/HIV-2 ANTIBODY Non-Reacti ve Non-Reacti ve 06/18/2015 7:41 PM SYSTEMS TEST TECHNICIAN [facility] Blood specimen (specimen) BLOOD SPECIMEN / Unknown Venipuncture / Unknown 06/18/2015 1:54 PM SYSTEMS TEST TECHNICIAN 06/18/2015 1:54 PM SYSTEMS TEST TECHNICIAN Narrative [facility] - 06/18/2015 7:41 PM SYSTEMS TEST TECHNICIAN HIV-1 p24 and HIV-1/HIV-2 Ab not detected Yamila Periera DO SEND OUTS [facility] [address] [place] [address], from Last 3 Months or Most Recently Relevant to Health Maintenance Advance Directives * Full Code (Latest Code Status on File) Date Activated Date Inactivated Comments 06/08/2020 7:48 PM 06/10/2020 3:30 PM Question Answer Comments Code Status Discussion: Discussed * Full Code Date Activated Date Inactivated Comments 12/06/2015 12:30 AM 12/07/2015 1:40 PM * Full Code Date Activated Date Inactivated Comments 12/05/2015 7:35 AM 12/05/2015 10:30 AM Question Answer Comments Code Status Discussion: Not Discussed * Full Code Date Activated Date Inactivated Comments 12/05/2015 7:31 AM 12/05/2015 7:35 AM Question Answer Comments Code Status Discussion: Not Discussed * Full Code Date Activated Date Inactivated Comments 12/05/2015 1:32 AM 12/05/2015 5:08 AM Care Teams Metal Tile Setter Relationship Specialty Start Date End Date Armaan Ayala MD PCP - General Family Practice 07/11/23
--- OUTSIDE RECORDS SUMMARY | 2023-12-26 21:24 | XMS_ITS | Referral Summary ---
Author Organization [facility] Address [address] [place] [address] Care Team Providers Care Lacquer Polisher Name Role Phone Cathy Chiang PA-C Primary Care Provider [phone] Allergies Active Allergy Reactions Criticality Noted Date [...] Comments Blood Pressure 118/60 07/09/2023 7:31 AM BRANCH MANAGER Pulse 61 07/09/2023 7:31 AM BRANCH MANAGER Temperature 36.7 ??C (98.1 ??F) 07/09/2023 7:31 AM CS T Respiratory Rate 15 04/01/2023 8:02 AM CDT Oxygen Saturation 98% 07/09/2023 7:31 AM BRANCH MANAGER Inhaled Oxygen Concentration - - Weight 74.4 kg (164 lb) 07/09/2023 7:31 AM BRANCH MANAGER Height 168.9 cm (5' 6.5) 04/01/2023 8:02 AM CDT Body Mass Index 26.07 04/01/2023 8:02 AM CDT Plan of Treatment Not on file Procedures Procedure Name Priority Date/Time Associated Diagnosis Comments MAMMO ELENA DIAG BILAT Routine 08/12/2022 9:26 AM BRANCH MANAGER from Last 3 Months or Most Recently Relevant to Health Maintenance Care Teams Lacquer Polisher Relationship Specialty Start Date End Date Cathy Chiang PA-C [address] [place] [address] PCP - General Family Medicine 04/01/23
[2023-12-26 22:04] LABS: Basophils Absolute Auto 0.04 K/uL (0.00-0.30); Basophils Percent Auto 0.7 % (0.0-3.0); Eosinophils Absolute Auto 0.34 K/uL (0.00-0.50); Hematocrit 38.9 % (33.0-51.0); Hemoglobin* 13.1 gm/dL (12.0-16.0); Lymphocytes Absolute Auto 2.16 K/uL (0.90-2.90); Lymphocytes Percent Auto 38.1 % (20-44); Mean Corpuscular HGB Conc 34 gm/dL (32-36); Mean Corpuscular Hemoglobin 29 pg (26-34); Mean Corpuscular Volume 87 fL (80-100); Monocytes Percent Auto 9.3 % (0.0-11.0); Neutrophils Percent Auto 45.9 % (42.0-72.0); Platelet Count* 144 K/uL (140-440); RDW Coefficient of Variation % 12.1 % (11.5-15.5); Red Blood Count 4.45 m/uL (4.00-5.20); White Blood Count* 5.67 K/uL (4.50-11.00)
[2023-12-26 22:05] LABS: Slide Review Reflex No
[2023-12-26 22:23] LABS: Albumin* 3.4 g/dL (3.3-5.0); Chloride* 108 mmol/L (96-114); Potassium* 4.1 mmol/L (3.6-5.1); Sodium* 137 mmol/L (135-149)
[2023-12-26 22:26] LABS: Alanine Aminotransferase* 13 U/L (4-35); Alkaline Phosphatase* 54 U/L (40-150); Anion Gap 6 mEq/L (7-15); Aspartate Amino Transferase* 23 U/L (12-35); Bilirubin Total* 0.4 mg/dL (0.1-1.5); Blood Urea Nitrogen* 23 mg/dL (5-24); Carbon Dioxide* 23 mmol/L (20-32); Creatinine* 0.7 mg/dL (0.5-1.5); Est. Creatinine Clearance* 97.01; Estimated Glomerular Filt Rate 110 ml/min; Glucose* 111 mg/dL (60-115); Total Protein* 5.7 g/dL (6.0-8.3)
[2023-12-26 22:27] LABS: Calcium* 8.4 mg/dL (8.4-10.6)
[2023-12-26 22:29] LABS: D Dimer Quantitative* 0.25 ug/ml (0.00-0.50)
[2023-12-26 22:39] LABS: Troponin I* < 0.01 ng/mL (0.01-0.04)
[2023-12-26] MEDS: KETOROLAC 30 MG/ML inj IM (22:45)
== END 2023-12-26 23:59 | disposition home or self-care (01) ==
PROVIDERS: Emergency Provider Internal Medicine
DX: J06.9 Acute upper respiratory infection, unspecified (principal)
CPT/HCPCS: 36415; 71046; 80053; 84484; 85025; 85379; 93005; 96372; 99283; 99284; J1885

== ENCOUNTER 2024-03-03 21:32 | Emergency (ER) | payer BC, SELFPAY ==
[2024-03-03 21:38] VITALS: BP 115/74; PULSE 89; RESP 16; TEMP 36.1; O2SAT 98; BMI 26.2
--- NOTE | 2024-03-03 21:46 | ED.EAR ---
HPI - Ear Problem General Time Seen by Provider: 21:46 Date Seen: 03/03/24 Chief complaint: Ear/Nose/Throat Problem Stated complaint: Left ear pain Time Seen by Provider: 03/03/24 21:45 Source: patient and RN notes reviewed Mode of arrival: ambulatory Limitations: no limitations History of Present Illness HPI Narrative: This 43-year-old female is coming in with left ear pain. She has had no fevers. She has actually had some nausea vomiting and diarrhea the last couple days. She has been in bed sick. There has been no fevers. The ear pain is been there for about 3 days, is getting worse tonight. She is hearing muffled sounds in the ear. She is getting shooting pains from the ear into her jaw when she chews. The pain does go above the ear with chewing as well. It is not in the joint itself but hurts into the ear when she does chew. No sore throat. She does note that she cleans her ears with Q-tips. She has noticed no drainage from the ear. She denies any other respiratory symptoms with this. MD Complaint: ear pain and decreased hearing Location: left ear Related Data Previous Rx's ?Medication ?Instructions ?Recorded azithromycin 250 mg tablet See Rx Instructions PO .COMPLEX #6 10/15/23 tabs Allergies Allergy/AdvReac Type Severity Reaction Status Date / Time terbutaline AdvReac Severe Agitated Verified 03/03/24 21:42 acetaminophen [From Vicodin] AdvReac Verified 03/03/24 21:42 hydrocodone [From Vicodin] AdvReac Verified 03/03/24 21:42 Penicillins AdvReac Verified 03/03/24 21:42 Review of Systems Narrative: As per HPI. PFSH PFSH Social History Smoking Status: Never smoker Do you use any of these nicotine containing products: None Second hand tobacco smoke exposure: No How often do you have a drink containing alcohol: never AUDIT-C Alcohol total score: 0 Non-prescribed substance use: denies use service: No Exam Const: Vital Signs, click to edit/add: Vital Signs - 24 hr 03/03/24 21:38 Temperature 97 F L Pulse Rate [Right Pulse Oximeter] 89 Respiratory Rate 16 Blood Pressure [Ri ght Upper Arm] 115/74 Pulse Oximetry 98 Oxygen Delivery Me thod Room Air This 43-year-old female is alert, interactive, no apparent distress. Face atraumatic. Pupils equal round reactive, sclera clear. Both of her canals are quite small and difficult to visualize her tympanic membranes. The left canal though has some mild erythema, is definitely more swollen than the right. She is tender within the canal when I attempt to retract her ear back, if I press on the tragus. She can fully open and close her jaw, the pain does not isolated over the jaw. Speech is normal. Neck is supple, no adenopathy. CV regular rate and rhythm no murmur. Documenting provider has reviewed patient's vital signs: yes Course Course ED Course: Discussed with patient that I cannot visualize the tympanic membrane. There certainly could be a component of otitis externa, cannot rule out otitis media. There is no identifiable drainage in the canal. She would like drops from [facility]. The only ear drops we have in there are the Cortisporin otic. She is allergic to penicillins, will give her Z-Jarrett with the ear drops. She understands if these are not helping to treat her ear symptoms, consideration for TMJ or alternate etiologies or failure of these medicines need to be considered. She does have a follow-up this next week in clinic. That certainly would be a great time to have her ear rechecked. Did discuss testing for COVID with patient, reviewed that we are seen a lot of GI symptomatology with COVID. She has an upcoming event where she is going to be around a lot of people, would like to test for this. We will allow her to discharge to home and contact her with her result. It is not going to change our management here tonight. Vital Signs Vital signs: Initial Vital Signs Temperature 97 F L 03/03/24 21:38 Temperature Source Temporal Artery Scan 03/03/24 21:38 Pulse Rate 89 03/03/24 21:38 Pulse Rhythm Regular 03/03/24 21:38 Pulse Strength 3+ Normal 03/03/24 21:38 Respiratory Rate 16 03/03/24 21:38 Blood Pressure 115/74 03/03/24 21:38 Blood Pressure Mean 87 03/03/24 21:38 Blood Pressure Position Supine 03/03/24 21:38 Pulse Oximetry 98 03/03/24 21:38 Oxygen Delivery Method Room Air 03/03/24 21:38 Vital Signs Temperature 97 F L 03/03/24 21:38 Pulse Rate 89 03/03/24 21:38 Respiratory Rate 16 03/03/24 21:38 Blood Pressure 115/74 03/03/24 21:38 Pulse Oximetry 98 03/03/24 21:38 Oxygen Delivery Method Room Air 03/03/24 21:38 Temperature 97 F L 03/03/24 21:38 Pulse Rate 89 03/03/24 21:38 Respiratory Rate 16 03/03/24 21:38 Blood Pressure 115/74 03/03/24 21:38 Pulse Oximetry 98 03/03/24 21:38 Oxygen Delivery Method Room Air 03/03/24 21:38 Medical Decision Making Lab Data Lab results reviewed: Yes I reviewed the patient's lab results Labs: Lab Results 03/03/24 Range/Units 21:56 SARS-CoV-2 (PCR) Negative SARS-CoV-2 (Negative) Discharge Plan Discharge Clinical Impression: Otitis externa Qualifiers: Otitis externa type: unspecified type Chronicity: acute Laterality: left Qualified Code(s): H60.502 - Unspecified acute noninfective otitis externa, left ear Patient Disposition: Home, Self-Care Condition: Stable Instructions: Ear Infection (ED) Additional Instructions: Take the antibiotics in use the ear drops as prescribed. The ear drops or 3 drops to the left ear 3 times a day for 7 days. Follow the dose instructions for the Z-Jarrett. Can use Tylenol and ibuprofen if needed for pain control. We will contact you if your COVID test is positive. If you do not hear from us you can presume it is negative. If you are not improving, feel you are worsening or have further concerns, please seek re-evaluation. Activity Level: Activity as Tolerated Prescriptions: No Action azithromycin 250 mg tablet See Rx Instructions .ROUTE .COMPLEX Qty: 6 0RF Rx Instructions: For 250 mg dose pack: take 500 mg today (day 1), then 250 mg for 4 days (days 2-5) Follow Up/Referrals: Provider,Not a Local [Primary Care Provider] - Stand Alone Forms: [employer] Info Instructions
--- OUTSIDE RECORDS SUMMARY | 2024-03-03 22:05 | XMS_ITS | Clinical Summary ---
Author Organization [email or web address] Address [place], [place] [address] Care Team Providers Care Abstracter Name Role Phone Armaan Ayala MD Primary Care Prov ider Allergies Active Allergy Reactions Criticality Noted Date [...] delivery 04/03/2012 05/14/2015 Unspecified high-risk pregna ncy 2011--PTL/bfppiu70 wk, GDDM insulin, baby heart changes, 90lb weight gain 03/24/2012 01/18/20 16 Overview: NEXT VISIT ALERTS: 03/30 - Needs HSD adult admit navigator completed at next visit PN labs scanned in from 12/2011 (under incoming records) Staying at [facility] Was hospitalized from 03/17-03/26, PTL LAST GROWTH: 03/19 33w 1d 57% KISHAN 18.1 cm TESTING PLANS: Limited ultrasound weekly, BPP weekly, weekly OB Visits PRIMARY DIAGNOSIS: 03/19 ECHO () Right Ventricular enlargement with poor systolic function Mild to moderate tricuspid valve regurgitation Small pericardial effusion Possible restrictive PDA and pulmonary hypertension Trivial Aortic valve stenosis Labor 03/17- Inpatient at [facility]/C'ed 03/26 GDM Betamethasone 03/17-03/18 03/17 GBS NEGATIVE REFERRING PHYSICIAN: Gabi Padilla SPECIALISTS: Cardiology 03/19 Jaun Zamora FOREST E[employer]ICS PROFESSOR: Aura CARE COORDINATION: Antonieta Arzate Outpatient, Lucia Snider RN CONSULTS: 03/23 Delphine met with inpatient Aura schmitz NICU 03/19 Per repeat ECHO 3 weeks 03/25-05/06 reservation at [facility] PROCEDURES: MEDS: 03/17-03/18 Betamethasone given Vitamin D plans: 03/25 Prior Auth for Nifedipine GRANTED/faxed to [facility] pharmacy Pertinent/Abnormal LABS: 03/23 Negative Amnisure Rapid GBS NEGATIVE Blood type: O POSTIVE NURSING: Last Tdap vaccine: Flu vaccine given: Non BMI Optimal wt gain Plan for Gestational Diabetes screening:Gest. Diabetic- insulin controlled Planning/Not planning Tubal Ligation Is/Is not Medical assistance GENETICS: Date: Counselor: Plan: PLAN OF CARE: labor 03/17/2012 09/14/2012 Supervision of high-risk 03/10/2012 09/14/2012 Overview: Dr. Padilla will resume patient's care following delivery. Would like to see her at 8 weeks . Per Jennifer Pérez (03/24/12) Premature uterine contractions 04/10/2010 09/14/2012 Gestational diabetes 015 Immunizations Name Administration Dates Next Due COVID-19 vaccine (iCurrent 30mcg/0.3mL) P F, MDV 07/19/2021,05/01/2021 Influenza A [...] Livin g Coraly nn Complications:None Comments:[facility] AB 11w 0d 2009 Term 38w 0d 2.66 kg (5 lb 14 oz) F Vag N Livin g Clara Complications:Other Excessiv e Bleeding 2011 35w 2d 3.29 kg (7 lb 4.1 oz) M Vag Y Livin g 7 8 Kip Delivery Location:[facility] Comments:cardiac anoma ly in baby 2015 36w 3d 2.61 kg (5 lb 12 oz) F Vag IV Meds Y Livin g [address] Cuellar on Complications:None Delivery Location:[facility] Last Filed Vital Signs Vital Sign Reading [...] 11/12/2023 11:02 AM CDT Plan of Treatment Upcoming Encounters Date Type Department Care Team (Late st Contact Info) Description 03/08/2024 11:30 AM CDT Office Visit [facility] [address] [place] [address] Sabrina Gee MD [address] [place] [address] Health Maintenance Due Date Last Done Comments [...] Yes Paz Rocha LICSW Note: Yara and sports writer will identify a PCP at [facility] other General Yes Paz Rocha LICSW Note: Yara and Game Designer/Creative Director will work on finding a Trauma informed EMDR therapist. Other - Free Text General Yes Paz Rocha LICSW Note: Yara and Game Designer/Creative Director will work on Income based housing options other General Yes Paz Rocha LICSW Note: Game Designer/Creative Director will help Yara find clothing options for kids going back to school Procedures Procedure Name Priority Date/Time Associated Diagnosis Comments HAND SEWER THIN PREP PAP SCREEN IMAGED Routine 05/06/2018 1:50 PM CDT Screening for cervical cancer ANTI HIV 1/2 Routine 06/18/2015 1:54 PM PRESCHOOL ASSISTANT TEACHER Supervision of other normal , antepartum, first trimester from Last 3 Months or Most Recently Relevant to Health Maintenance Results * HAND SEWER THIN PREP PAP SCREEN IMAGED (05/06/2018 1:50 PM CDT) Pathologist [facility] Case Report Gynecologic Cytology Report ? Case: [id number] ? Authorizing Provider: ??Justyna Houser MD ? Collected: ? 05/06/2018 1350 ? Ordering Location: ? [facility] ?Received: ?05/06/2018 1528 ? Clinic ? First Screen: ?Isaiah Jimenez ? Rescreen: ?Zohra Sapp ? Specimen: ?HAND SEWER ThinPrep Vial Screening, Cervical ? 05/17/2018 2:26 PM [facility] Connolly [facility] INTERPRETATION /RESULT NEGATIVE FOR INTRAEPITHELIAL LESION OR MALIGNANCY (NIL) (none) 05/17/2018 2:26 PM [facility] NISM(S) Shift in cortney suggestive of bacterial vaginosis 05/17/2018 2:26 PM PRESCHOOL ASSISTANT TEACHER [facility] Connolly [facility] SPECIMEN ADEQUACY Satisfactory for evaluation Endocervical component present 05/17/2018 2:26 PM [facility] HPV REQUEST HPV and PAP 05/17/2018 2:26 PM PRESCHOOL ASSISTANT TEACHER [facility] Date of LMP 04/06/2018 05/17/2018 2:26 PM [facility] Last Pap Date 06/14/15 05/17/2018 2:26 PM PRESCHOOL ASSISTANT TEACHER [facility] Last Pap Result NIL 05/17/2018 2:26 PM PRESCHOOL ASSISTANT TEACHER [facility] Abnormal Pap or Risco Bx in last 5 years Yes 05/17/2018 2:26 PM [facility] Menstrual Status Regular Periods 05/17/2018 2:26 PM PRESCHOOL ASSISTANT TEACHER [facility] Risco Bx Done Today No 05/17/2018 2:26 PM [facility] Additional Information None given 05/17/2018 2:26 PM [facility] Automated Review Failed 05/17/2018 2:26 PM [facility] Comment:Processing failed, m anual screening required. ThinPrep Imaging System, [employer] ANCILLARY TESTING HAND SEWER HPV Ordered, Please see separate report 05/17/2018 2:26 PM PRESCHOOL ASSISTANT TEACHER [facility] Note The pap test is [...] lesions. Cytology is screened and interpreted at [facility] - [address], [place] [address] and [facility] - [address]; [place] [address] [facility] - [address]; [place] [address] and [facility] [address]; [place] [address] 05/17/2018 2:26 PM PRESCHOOL ASSISTANT TEACHER [facility] Other (Cervical) Non-Blood / Unknown 05/06/2018 1:50 PM CDT 05/06/2018 3:28 PM CDT Justyna Houser MD PATHOLOGY/CYTOLOGY Performing Organization Address City/[facility]/ZIP Co de Phone Number [facility] [address] [place] [address], [place] * ANTI HIV 1/2 (06/18/2015 1:54 PM PRESCHOOL ASSISTANT TEACHER) HIV-1/HIV-2 ANTIBODY Non-Reacti ve Non-Reacti ve 06/18/2015 7:41 PM PRESCHOOL ASSISTANT TEACHER [facility] TRAL [facility] Blood specimen (specimen) BLOOD SPECIMEN / Unknown Venipuncture / Unknown 06/18/2015 1:54 PM PRESCHOOL ASSISTANT TEACHER 06/18/2015 1:54 PM PRESCHOOL ASSISTANT TEACHER Narrative [facility] - 06/18/2015 7:41 PM PRESCHOOL ASSISTANT TEACHER HIV-1 p24 and HIV-1/HIV-2 Ab not detected Yamila Pereira DO SEND OUTS Performing Organization Address City/[facility]/ZIP Co de Phone Number [facility] [address] [place] [address], [place] from Last 3 Months or Most Recently [...] 1:32 AM 12/05/2015 5:08 AM Care Teams Abstracter Relationship Specialty Start Date End Date Armaan Ayala MD [address] [place] [phone] PCP - General Family Practice 07/11/23
--- OUTSIDE RECORDS SUMMARY | 2024-03-03 22:05 | XMS_ITS | Referral Summary ---
Author Organization [facility] Address [address] [place] [address] Care Team Providers Care Public Health Professor Name Role Phone Cathy Chiang PA-C Primary Care Provider [phone] Allergies Active Allergy Reactions Criticality Noted Date [...] Immunizations Name Administration Dates Next Due Influenza Unspecified 04/18/2017 Influenza, recombinant, quadrivalent, PF 021,04/18/2017 Pfizer 12+ Yrs MONOVALENT COVID Vaccine 11/06/19 [...] Comments Blood Pressure 118/60 07/09/2023 7:31 AM MIRROR DEPARTMENT SUPERVISOR Pulse 61 07/09/2023 7:31 AM MIRROR DEPARTMENT SUPERVISOR Temperature 36.7 ??C (98.1 ??F) 07/09/2023 7:31 AM CS T Respiratory Rate 15 04/01/2023 8:02 AM CDT Oxygen Saturation 98% 07/09/2023 7:31 AM MIRROR DEPARTMENT SUPERVISOR Inhaled Oxygen Concentration - - Weight 74.4 kg (164 lb) 07/09/2023 7:31 AM MIRROR DEPARTMENT SUPERVISOR Height 168.9 cm (5' 6.5) 04/01/2023 8:02 AM CDT Body Mass Index 26.07 04/01/2023 8:02 AM CDT Plan of Treatment Not on file Care Teams Public Health Professor Relationship Specialty Start Date End Date Cathy Chiang PA-C [address] [place] [address] PCP - General Family Medicine 04/01/23
--- OUTSIDE RECORDS SUMMARY | 2024-03-03 22:05 | XMS_ITS | Clinical Summary ---
Author Organization [facility] Address [address] [place] [address] Care Team Providers Care Musical Instrument Maker Name Role Phone Cathy Chiang PA-C Primary Care Provider [phone] Allergies Active Allergy Reactions Criticality Noted Date [...] Comments Blood Pressure 118/60 07/09/2023 7:31 AM RESPIRATORY THERAPIST Pulse 61 07/09/2023 7:31 AM RESPIRATORY THERAPIST Temperature 36.7 ??C (98.1 ??F) 07/09/2023 7:31 AM CS T Respiratory Rate 15 04/01/2023 8:02 AM CDT Oxygen Saturation 98% 07/09/2023 7:31 AM RESPIRATORY THERAPIST Inhaled Oxygen Concentration - - Weight 74.4 kg (164 lb) 07/09/2023 7:31 AM RESPIRATORY THERAPIST Height 168.9 cm (5' 6.5) 04/01/2023 8:02 AM CDT Body Mass Index 26.07 04/01/2023 8:02 AM CDT Plan of Treatment Health Maintenance Due Date Last Done Comments Diabetes Screening 1980 Hepatitis C Screening 1980 Pap Smear 1980 Pneumococcal <65 (1 of 2 - PCV) 1986 COVID-19 Vaccine (2022-2 4 season) 2023 11/05/2021, 07/19/2021, 05/01/2021 Mammogram Screening 08/12/2023 08/12/2022, 08/12/2022, 09/12/2021, Additional history exists Influenza Vaccine (#1) 2024 , 04/18/2017, 04/18/2017 Anxiety Follow-Up (JOHN-7) 07/09/2024 07/09/2023, Depression Follow-Up (PHQ-9) 07/09/2024 07/09/2023, 04/01/2023 Adult Tetanus Booster 10/08/2025 10/09/2015 Lipid Screening 07/22/2027 07/22/2022 (Prev iously completed) Care Teams Musical Instrument Maker Relationship Specialty Start Date End Date Cathy Chiang, PACodyC [address] [place], [place] [phone] PCP - General Family Medicine 04/01/23
[2024-03-03 22:40] LABS: SARS PCR* Negative SARS-CoV-2 (Negative)
== END 2024-03-03 22:08 | disposition home or self-care (01) ==
LOC: ED 22:03
PROVIDERS: Emergency Provider Family Medicine
DX: H60.502 Unspecified acute noninfective otitis externa, left ear (principal)
CPT/HCPCS: 87635; 99283

== ENCOUNTER 2024-03-04 02:26 | Emergency (ER) | payer BC, SELFPAY ==
[2024-03-04 02:30] VITALS: BP 123/75; PULSE 88; RESP 20; TEMP 36.8; O2SAT 97; BMI 26.8
--- NOTE | 2024-03-04 02:41 | ED.EAR ---
HPI - Ear Problem General Chief complaint: Ear/Nose/Throat Problem Stated complaint: left side ear pain Time Seen by Provider: 03/04/24 02:35 History of Present Illness HPI Narrative: Patient is a 43-year-old woman who left here proximally 4 hours ago after being diagnosed with otitis externa. She is placed on antibiotic drops plus Z-Jarrett. She arrives back to the emergency room crying hysterically stating that she cannot take the pain anymore in her left ear. She has only just begun the antibiotics and drops. She has taken Tylenol with no effect. She has little bit of drainage from her left ear but no stiff neck no other URI symptoms. She is otherwise unchanged from previous assessment several weeks ago. Related Data Previous Rx's ?Medication ?Instructions ?Recorded azithromycin 250 mg tablet See Rx Instructions PO .COMPLEX #6 10/15/23 tabs Allergies Allergy/AdvReac Type Severity Reaction Status Date / Time terbutaline AdvReac Severe Agitated Verified 03/03/24 21:42 acetaminophen [From Vicodin] AdvReac Verified 03/03/24 21:42 hydrocodone [From Vicodin] AdvReac Verified 03/03/24 21:42 Penicillins AdvReac Verified 03/03/24 21:42 Review of Systems Status of ROS: Reports: 10 or more systems reviewed and unremarkable except as noted in History and below PFSH PFS Social History Smoking Status: Never smoker Do you use any of these nicotine containing products: None Second hand tobacco smoke exposure: No How often do you have a drink containing alcohol: never AUDIT-C Alcohol total score: 0 Non-prescribed substance use: denies use service: No Exam Narrative: Exam Narrative: EXAM GENERAL: Patient appears uncomfortable and crying hysterically. EYES: No scleral icterus. ENT: Left external ear is partially occluded swollen with exudative drainage. THYROID: no thyroid nodules or thyromegaly. LYMPH: No supraclavicular or cervical lymphadenopathy. SKIN: Visible skin seen during exam normal or with benign process only. EXT: No dependent lower extremity pedal edema. HEART: Regular rate and rhythm with no murmurs, rubs, or gallops. LUNGS: Clear to auscultation bilaterally with no crackles or wheezes. ABD: Soft, non tender, non distended. PSYCH: Good eye contact, speech is not pressured. Const: Vital Signs, click to edit/add: Vital Signs - 24 hr 03/04/24 02:30 Temperature 98.3 F Pulse Rate [Left P ulse Oximeter] 88 Respiratory Rate 20 Blood Pressure [Ri ght Upper Arm] 123/75 Pulse Oximetry 97 Oxygen Delivery Me thod Room Air Course Course ED Course: Patient seen and examined. Previous notes reviewed. Vital Signs Vital signs: Initial Vital Signs Temperature 98.3 F 03/04/24 02:30 Temperature Source Temporal Artery Scan 03/04/24 02:30 Pulse Rate 88 03/04/24 02:30 Pulse Rhythm Regular 03/04/24 02:30 Respiratory Rate 20 03/04/24 02:30 Blood Pressure 123/75 03/04/24 02:30 Blood Pressure Mean 91 03/04/24 02:30 Blood Pressure Position Sitting 03/04/24 02:30 Pulse Oximetry 97 03/04/24 02:30 Oxygen Delivery Method Room Air 03/04/24 02:30 Vital Signs Temperature 98.3 F 03/04/24 02:30 Pulse Rate 88 03/04/24 02:30 Respiratory Rate 20 03/04/24 02:30 Blood Pressure 123/75 03/04/24 02:30 Pulse Oximetry 97 03/04/24 02:30 Oxygen Delivery Method Room Air 03/04/24 02:30 Temperature 98.3 F 03/04/24 02:30 Pulse Rate 88 03/04/24 02:30 Respiratory Rate 20 03/04/24 02:30 Blood Pressure 123/75 03/04/24 02:30 Pulse Oximetry 97 03/04/24 02:30 Oxygen Delivery Method Room Air 03/04/24 02:30 Medical Decision Making MDM Narrative Medical decision making narrative: I agree with previous physician's assessment that this is otitis externa. I do think we need to continue her current treatment plan. Patient is allergic to Percocet and Tylenol and I did treat her with oxycodone limited number of 5 mg tablets 8. I recommended warm compresses continued antibiotics and drops and follow-up with her primary physician. Differential diagnosis includes but not limited to otitis externa otitis media URI. Discharge Plan Discharge Clinical Impression: Otitis externa Qualifiers: Otitis externa type: unspecified type Chronicity: acute Laterality: left Qualified Code(s): H60.502 - Unspecified acute noninfective otitis externa, left ear Patient Disposition: Home, Self-Care Condition: Stable Instructions: Swimmer's Ear (ED) Additional Instructions: Continue current treatment with the addition of oxycodone Follow-up with your doctor as discussed. Activity Level: No Restrictions Discharge Diet: Regular Prescriptions: No Action azithromycin 250 mg tablet See Rx Instructions .ROUTE .COMPLEX Qty: 6 0RF Rx Instructions: For 250 mg dose pack: take 500 mg today (day 1), then 250 mg for 4 days (days 2-5) Follow Up/Referrals: Provider,Not a Local [Primary Care Provider] - Stand Alone Forms: [employer] Info Instructions
--- OUTSIDE RECORDS SUMMARY | 2024-03-04 02:56 | XMS_ITS | Referral Summary ---
Author Organization [facility] Address [address] [place] [address] Care Team Providers Care Train Control Technician Name Role Phone Cathy Chiang PA-C Primary Care Provider [phone] Allergies Active Allergy Reactions Criticality Noted Date [...] Comments Blood Pressure 118/60 07/09/2023 7:31 AM CUSTOMER COMPLAINT SERVICE SUPERVISOR Pulse 61 07/09/2023 7:31 AM CUSTOMER COMPLAINT SERVICE SUPERVISOR Temperature 36.7 ??C (98.1 ??F) 07/09/2023 7:31 AM CS T Respiratory Rate 15 04/01/2023 8:02 AM CDT Oxygen Saturation 98% 07/09/2023 7:31 AM CUSTOMER COMPLAINT SERVICE SUPERVISOR Inhaled Oxygen Concentration - - Weight 74.4 kg (164 lb) 07/09/2023 7:31 AM CUSTOMER COMPLAINT SERVICE SUPERVISOR Height 168.9 cm (5' 6.5) 04/01/2023 8:02 AM CDT Body Mass Index 26.07 04/01/2023 8:02 AM CDT Plan of Treatment Not on file Care Teams Train Control Technician Relationship Specialty Start Date End Date Cathy Chiang PA-C [address] [place] [address] PCP - General Family Medicine 04/01/23
--- OUTSIDE RECORDS SUMMARY | 2024-03-04 02:56 | XMS_ITS | Clinical Summary ---
Author Organization [facility] Address [address] [place] [address] Care Team Providers Care Racket Stringer Name Role Phone Cathy Chiang PA-C Primary Care Provider [phone] Allergies Active Allergy Reactions Criticality Noted Date [...] Comments Blood Pressure 118/60 07/09/2023 7:31 AM ELECTRICAL WORKER Pulse 61 07/09/2023 7:31 AM ELECTRICAL WORKER Temperature 36.7 ??C (98.1 ??F) 07/09/2023 7:31 AM CS T Respiratory Rate 15 04/01/2023 8:02 AM CDT Oxygen Saturation 98% 07/09/2023 7:31 AM ELECTRICAL WORKER Inhaled Oxygen Concentration - - Weight 74.4 kg (164 lb) 07/09/2023 7:31 AM ELECTRICAL WORKER Height 168.9 cm (5' 6.5) 04/01/2023 8:02 [...] 07/22/2027 07/22/2022 (Prev iously completed) Care Teams Racket Stringer Relationship Specialty Start Date End Date Cathy Chiang, PACodyC [address] [place], [place] [address] PCP - General Family Medicine 04/01/23
--- OUTSIDE RECORDS SUMMARY | 2024-03-04 02:56 | XMS_ITS | Clinical Summary ---
Author Organization [email or web address] [facility] Address [place], [place] [address] Care Team Providers Care Product Blending Supervisor Name Role Phone Armaan Ayala MD Primary [...] delivery 04/03/2012 05/14/2015 Unspecified high-risk pregna ncy 2011--PTL/[id number] wk, GDDM insulin, baby heart changes, 90lb weight gain 03/24/2012 01/18/20 16 Overview: NEXT VISIT ALERTS: 03/30 - Needs HSD adult admit navigator completed at next visit PN labs scanned in from 12/2011 (under incoming records) Staying at [facility] Was hospitalized from 03/17-03/26, PTL LAST GROWTH: 03/19 33w 1d 57% KISHAN 18.1 cm TESTING PLANS: Limited ultrasound weekly, BPP weekly, weekly OB Visits PRIMARY DIAGNOSIS: 03/19 ECHO () Right Ventricular enlargement with poor systolic function Mild to moderate tricuspid valve regurgitation Small pericardial effusion Possible restrictive PDA and pulmonary hypertension Trivial Aortic valve stenosis Labor 03/17- Inpatient at [facility]-D/C'ed 03/26 GDM Betamethasone 03/17-03/18 03/17 GBS NEGATIVE REFERRING PHYSICIAN: Gabi Padilla SPECIALISTS: Cardiology 03/19 Jaun Zamora PRODUCTION MATERIAL HANDLER: Aura CARE COORDINATION: Antonieta Arzate Outpatient, Lucia Snider RN CONSULTS: 03/23 Delphine met with inpatient Aura schmitz NICU 03/19 Per repeat ECHO 3 weeks 03/25-05/06 reservation at [facility] PROCEDURES: MEDS: 03/17-03/18 Betamethasone given Vitamin D plans: 03/25 Prior Auth for Nifedipine GRANTED/faxed to [facility] pharmacy Pertinent/Abnormal LABS: 03/23 Negative Amnisure Rapid [...] Name Administration Dates Next Due COVID-19 vaccine (TEEspy 30mcg/0.3mL) P F, MDV 07/19/2021,05/01/2021 Influenza A [...] Livin g Coraly nn Complications:None Comments:[facility] AB 11w 0d 2009 Term 38w 0d 2.66 kg (5 lb 14 oz) F Vag N Livin g Clara Complications:Other Excessiv e Bleeding 2011 35w 2d 3.29 kg (7 lb 4.1 oz) M Vag Y Livin g 7 8 Kip Delivery Location[facility] Comments:cardiac anoma ly in baby 2015 36w 3d 2.61 kg (5 lb 12 oz) F Vag IV Meds Y Livin g [address] Cuellar on Complications:None Delivery Location:[facility] Last Filed Vital Signs Vital Sign Reading [...] Description 03/08/2024 11:30 AM CDT Office Visit [facility] [address] [place] [address] Sabrina Gee MD [address] [place] [address] Health Maintenance Due Date Last Done Comments [...] Yes Paz Rocha LICSW Note: Yara and program writer will identify a PCP at [facility] other General Yes Paz Rocha LICSW Note: Yara and Butcher Helper will work on finding a Trauma informed EMDR therapist. Other - Free Text General Yes Paz Rocha LICSW Note: Yara and Butcher Helper will work on Income based housing options other General Yes Paz Rocha LICSW Note: Butcher Helper will help Yara find clothing options for kids going back to school Procedures Procedure Name Priority Date/Time Associated Diagnosis Comments SQL SSRS DEVELOPER THIN PREP PAP SCREEN IMAGED Routine 05/06/2018 1:50 PM CDT Screening for cervical cancer ANTI HIV 1/2 Routine 06/18/2015 1:54 PM DISCHARGE COORDINATOR Supervision of other normal , antepartum, first trimester from Last 3 Months or Most Recently Relevant to Health Maintenance Results * SQL SSRS DEVELOPER THIN PREP PAP SCREEN IMAGED (05/06/2018 1:50 PM CDT) Pathologist [facility] Case Report Gynecologic Cytology Report ? Case: [id number] ? Authorizing Provider: ??Justyna Houser MD ? Collected: ? 05/06/2018 1350 ? Ordering Location: ? [facility] ?Received: ?05/06/2018 1528 ? Clinic ? First Screen: ?Isaiah Jimenez ? Rescreen: ?Zohra Sapp ? Specimen: ?SQL SSRS DEVELOPER ThinPrep Vial Screening, Cervical ? 05/17/2018 2:26 PM [facility] ENTRAL LABORATORY INTERPRETATION /RESULT NEGATIVE FOR INTRAEPITHELIAL LESION OR MALIGNANCY (NIL) (none) 05/17/2018 2:26 PM [facility] ENTRAL LABORATORY NISM(S) Shift in cortney suggestive of bacterial vaginosis 05/17/2018 2:26 PM DISCHARGE COORDINATOR [facility] [employer] ENTRAL LABORATORY SPECIMEN ADEQUACY Satisfactory for evaluation Endocervical component present 05/17/2018 2:26 PM [facility]AL LAB[facility] HPV REQUEST HPV and PAP 05/17/2018 2:26 PM DISCHARGE COORDINATOR [facility] ENTRAL LABORATORY Date of LMP 04/06/2018 05/17/2018 2:26 PM [facility] Last Pap Date 06/14/15 05/17/2018 2:26 PM DISCHARGE COORDINATOR [facility] ENTRAL LAB[facility]ORY Last Pap Result NIL 05/17/2018 2:26 PM DISCHARGE COORDINATOR [facility] ENTRAL LAB[facility]ORY Abnormal Pap or [place] Bx in last 5 years Yes 05/17/2018 2:26 PM [facility] Menstrual Status Regular Periods 05/17/2018 2:26 PM DISCHARGE COORDINATOR [facility] ENTRAL LAB[facility]ORY [place] Bx Done Today No 05/17/2018 2:26 PM [facility] Additional Information None given 05/17/2018 2:26 PM [facility] EN[facility] LAB[facility] Automated Review Failed 05/17/2018 2:26 PM [facility] LAB[facility] Comment:Processing failed, m anual screening required. ThinPrep Imaging System, [employer] ANCILLARY TESTING SQL SSRS DEVELOPER HPV Ordered, Please see separate report 05/17/2018 2:26 PM DISCHARGE COORDINATOR [facility] ENTRAL LABORATORY Note The [...] lesions. Cytology is screened and interpreted at [facility] - [address], [place] [address] and [facility] - [address]; [place] [address] and [facility] - [address]; [place] [address] and [facility] [address]; [place] [address] 05/17/2018 2:26 PM DISCHARGE COORDINATOR [facility] ENTRAL LABORATORY Other (Cervical) Non-Blood / Unknown 05/06/2018 1:50 PM CDT 05/06/2018 3:28 PM CDT Justyna Houser MD PATHOLOGY/CYTOLOGY Performing Organization Address City/[facility]/ZIP Co de Phone Number [facility] [address] [place] [address], [place] * ANTI HIV 1/2 (06/18/2015 1:54 PM DISCHARGE COORDINATOR) HIV-1/HIV-2 ANTIBODY Non-Reacti ve Non-Reacti ve 06/18/2015 7:41 PM DISCHARGE COORDINATOR [facility] TRAL LABORATORY Blood specimen (specimen) BLOOD SPECIMEN / Unknown Venipuncture / Unknown 06/18/2015 1:54 PM DISCHARGE COORDINATOR 06/18/2015 1:54 PM DISCHARGE COORDINATOR Narrative [facility] - 06/18/2015 7:41 PM DISCHARGE COORDINATOR HIV-1 p24 and HIV-1/HIV-2 Ab not detected Yamila Pereira DO SEND OUTS Performing Organization Address City/[facility]/ZIP Co de Phone Number [facility] [address] [place] [address], [place] from Last 3 Months or Most [...] 1:32 AM 12/05/2015 5:08 AM Care Teams Product Blending Supervisor Relationship Specialty Start Date End Date Armaan Ayala MD [address] [place] [id number] PCP - General Family Practice 07/11/23
== END 2024-03-04 02:58 | disposition home or self-care (01) ==
PROVIDERS: Emergency Provider Internal Medicine
DX: H60.502 Unspecified acute noninfective otitis externa, left ear (principal)
CPT/HCPCS: 99283

== ENCOUNTER 2024-03-05 11:07 | Emergency (ER) | payer BC, SELFPAY ==
[2024-03-05 11:11] VITALS: BP 113/75; PULSE 89; RESP 20; TEMP 35.9; O2SAT 97; BMI 26.8
--- OUTSIDE RECORDS SUMMARY | 2024-03-05 11:29 | XMS_ITS | Referral Summary ---
Author Organization [facility] Address [address] [place] [address] Care Team Providers Care Franchise Specialist Name Role Phone Cathy Chiang PA-C Primary Care Provider [phone] Allergies Active Allergy Reactions Criticality Noted Date [...] Comments Blood Pressure 118/60 07/09/2023 7:31 AM SECONDARY SCHOOL PRINCIPAL Pulse 61 07/09/2023 7:31 AM SEC[employer]ARY SCHO[employer] PRINCIPAL Temperature 36.7 ??C (98.1 ??F) 07/09/2023 7:31 AM CS T Respiratory Rate 15 04/01/2023 8:02 AM CDT Oxygen Saturation 98% 07/09/2023 7:31 AM SEC[employer]ARY SCHOOL PRINCIPAL Inhaled Oxygen Concentration - - Weight 74.4 kg (164 lb) 07/09/2023 7:31 AM SEC[employer]ARY SCHOOL PRINCIPAL Height 168.9 cm (5' 6.5) 04/01/2023 8:02 AM CDT Body Mass Index 26.07 04/01/2023 8:02 AM CDT Plan of Treatment Not on file Care Teams Franchise Specialist Relationship Specialty Start Date End Date Cathy Chiang PA-C [address] [place] [address] PCP - General Family Medicine 04/01/23
--- OUTSIDE RECORDS SUMMARY | 2024-03-05 11:29 | XMS_ITS | Clinical Summary ---
Author Organization [employer] Address [place], [place] [address] Care Team Providers Care Videogame Designer Name Role Phone Armaan Ayala MD Primary [...] delivery 04/03/2012 05/14/2015 Unspecified high-risk pregna ncy 2011--PTL/[id number] wk, GDDM insulin, baby heart changes, 90lb weight gain 03/24/2012 01/18/20 16 Overview: NEXT VISIT ALERTS: 03/30 - Needs HSD adult admit navigator completed at next visit PN labs scanned in from 12/2011 (under incoming records) Staying at [facility] Was hospitalized from 03/17-03/26, PTL LAST GROWTH: 03/19 33w 1d 57% KISHAN 18.1 cm TESTING PLANS: Limited ultrasound weekly, BPP weekly, weekly OB Visits PRIMARY DIAGNOSIS: 03/19 ECHO () Right Ventricular enlargement with poor systolic function Mild to moderate tricuspid valve regurgitation Small pericardial effusion Possible restrictive PDA and pulmonary hypertension Trivial Aortic valve stenosis Labor 03/17- Inpatient at [facility]-D/C'ed 03/26 GDM Betamethasone 03/17-03/18 03/17 GBS NEGATIVE REFERRING PHYSICIAN: Gabi Padilla SPECIALISTS: Cardiology 03/19 Jaun Zamora QUALITATIVE RESEARCHER: Aura CARE COORDINATION: Antonieta Arzate Outpatient, Lucia Snider RN CONSULTS: 03/23 Delphine met with inpatient Aura schmitz NICU 03/19 Per repeat ECHO 3 weeks 03/25-05/06 reservation at [facility] PROCEDURES: MEDS: 03/17-03/18 Betamethasone given Vitamin D plans: 03/25 Prior Auth for Nifedipine GRANTED/faxed to [facility] pharmacy Pertinent/Abnormal LABS: 03/23 Negative Amnisure [...] Name Administration Dates Next Due COVID-19 vaccine (Xeebel 30mcg/0.3mL) P F, MDV 07/19/2021,05/01/2021 Influenza A [...] Livin g Coraly nn Complications:None Comments:adopted to [employer] [facility] member 2006 AB 11w 0d 2009 Term 38w 0d 2.66 kg (5 lb 14 oz) F Vag N Livin g Clara Complications:Other Excessiv e Bleeding 2011 35w 2d 3.29 kg (7 lb 4.1 oz) M Vag Y Livin g 7 8 Kip Delivery Location:[facility] in[facility] Comments:cardiac anoma ly in baby 2015 36w 3d 2.61 kg (5 lb 12 oz) F Vag IV Meds Y Livin g [address] Cuellar on Complications:None Delivery Location:[facility] Last Filed Vital Signs Vital [...] Description 03/08/2024 11:30 AM CDT Office Visit [facility] [address] [place] [address] Sabrina Gee MD [address] [place] [address] Health Maintenance Due Date Last Done Comments [...] Yes Paz Rocha LICSW Note: Yara and automatic typewriter inspector will identify a PCP at [facility] other General Yes Paz Rocha LICSW Note: Yara and Mason Foreman/Superintendant will work on finding a Trauma informed EMDR therapist. Other - Free Text General Yes Paz Rocha LICSW Note: Yara and Mason Foreman/Superintendant will work on Income based housing options other General Yes Paz Rocha LICSW Note: Mason Foreman/Superintendant will help Yara find clothing options for kids going back to school Procedures Procedure Name Priority Date/Time Associated Diagnosis Comments GUARD LIEUTENANT THIN PREP PAP SCREEN IMAGED Routine 05/06/2018 1:50 PM CDT Screening for cervical cancer ANTI HIV 1/2 Routine 06/18/2015 1:54 PM AUTHORIZATION NURSE Supervision of other normal , antepartum, first trimester from Last 3 Months or Most Recently Relevant to Health Maintenance Results * GUARD LIEUTENANT THIN PREP PAP SCREEN IMAGED (05/06/2018 1:50 PM CDT) Pathologist [facility] Case Report Gynecologic Cytology Report ? Case: [id number] ? Authorizing Provider: ??Justyna Houser MD ? Collected: ? 05/06/2018 1350 ? Ordering Location: ? [facility] ?Received: ?05/06/2018 1528 ? Clinic ? First Screen: ?Isaiah Jimenez ? Rescreen: ?Zohra Sapp ? Specimen: ?GUARD LIEUTENANT ThinPrep Vial Screening, Cervical ? 05/17/2018 2:[address] [facility] INTERPRETATION /RESULT NEGATIVE FOR INTRAEPITHELIAL LESION OR MALIGNANCY (NIL) (none) 05/17/2018 2:26 PM [facility] ENTRAL LABORATORY NISM(S) Shift in cortney suggestive of bacterial vaginosis 05/17/2018 2:26 PM AUTHORIZATION NURSE [facility] SPECIMEN ADEQUACY Satisfactory for evaluation Endocervical component present 05/17/2018 2:26 PM [facility] ENTRAL LABORATORY HPV REQUEST HPV and PAP 05/17/2018 2:26 PM AUTHORIZATION NURSE [facility] ENTRAL LABORATORY Date of LMP 04/06/2018 05/17/2018 2:26 PM [facility] ENTRAL LABORATORY Last Pap Date 06/14/15 05/17/2018 2:26 PM AUTHORIZATION NURSE [facility] ENTRAL LABORATORY Last Pap Result NIL 05/17/2018 2:26 PM AUTHORIZATION NURSE [facility] EN[facility]AL LABORATORY Abnormal Pap or [place] Bx in last 5 years Yes 05/17/2018 2:26 PM [facility] ENTRAL LABORATORY Menstrual Status Regular Periods 05/17/2018 2:26 PM AUTHORIZATION NURSE [facility] ENTRAL LABORATORY [place] Bx Done Today No 05/17/2018 2:26 PM [facility] ENTRAL LABORATORY Additional Information None given 05/17/2018 2:26 PM [facility] ENTRAL LABORATORY Automated Review Failed 05/17/2018 2:26 PM [facility] ENTRAL LABORATORY Comment:Processing failed, m anual screening required. ThinPrep Imaging System, [employer] ANCILLARY TESTING GUARD LIEUTENANT HPV Ordered, Please see separate report 05/17/2018 2:26 PM AUTHORIZATION NURSE [facility] ENTRAL LABORATORY Note The [...] screened and interpreted at [facility] - [address], [place] [address] and [facility] - [address]; [place] [address] and [facility] - [address]; [place] [address] and [facility] [address]; [place] [address] 05/17/2018 2:26 PM AUTHORIZATION NURSE [facility] ENTRAL LABORATORY Other (Cervical) Non-Blood / Unknown 05/06/2018 1:50 PM CDT 05/06/2018 3:28 PM CDT Justyna Houser MD PATHOLOGY/CYTOLOGY Performing Organization Address City/[facility]/ZIP Co de Phone Number [facility] [address] [place] [address], [place] * ANTI HIV 1/2 (06/18/2015 1:54 PM AUTHORIZATION NURSE) HIV-1/HIV-2 ANTIBODY Non-Reacti ve Non-Reacti ve 06/18/2015 7:41 PM AUTHORIZATION NURSE [facility] TRAL LABORATORY Blood specimen (specimen) BLOOD SPECIMEN / Unknown Venipuncture / Unknown 06/18/2015 1:54 PM AUTHORIZATION NURSE 06/18/2015 1:54 PM AUTHORIZATION NURSE Narrative [facility] - 06/18/2015 7:41 PM AUTHORIZATION NURSE HIV-1 p24 and HIV-1/HIV-2 Ab not detected Yamila Pereira DO SEND OUTS Performing Organization Address City/[facility]/ZIP Co de Phone Number [facility] [address] [place] [address], [place] from Last 3 Months or Most [...] 1:32 AM 12/05/2015 5:08 AM Care Teams Videogame Designer Relationship Specialty Start Date End Date Armaan Ayala MD [address] [place] [phone] PCP - General Family Practice 07/11/23
--- OUTSIDE RECORDS SUMMARY | 2024-03-05 11:29 | XMS_ITS | Clinical Summary ---
Author Organization [facility] Address [address] [place] [address] Care Team Providers Care Beam Dyer Operator Name Role Phone Cathy Chiang PA-C Primary Care Provider [phone] Allergies Active Allergy Reactions Criticality Noted Date [...] Comments Blood Pressure 118/60 07/09/2023 7:31 AM SEE WHEELER Pulse 61 07/09/2023 7:31 AM SEE WHEELER Temperature 36.7 ??C (98.1 ??F) 07/09/2023 7:31 AM CS T Respiratory Rate 15 04/01/2023 8:02 AM CDT Oxygen Saturation 98% 07/09/2023 7:31 AM SEE WHEELER Inhaled Oxygen Concentration - - Weight 74.4 kg (164 lb) 07/09/2023 7:31 AM SEE WHEELER Height 168.9 cm (5' 6.5) 04/01/2023 8:02 [...] 07/22/2027 07/22/2022 (Prev iously completed) Care Teams Beam Dyer Operator Relationship Specialty Start Date End Date Cathy Chiang, PACodyC [address] [place], [place] [address] PCP - General Family Medicine 04/01/23
[2024-03-05] MEDS: CIPROFLOXACIN 500 MG TABLET PO (11:36)
[2024-03-05] MEDS: OxyCODONE/APAP 5-325 TABLET 2 TAB PO (11:36)
--- NOTE | 2024-03-05 11:36 | ED.GENADULT ---
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 She has had trouble with her ear over the last week or so, she was put on Zithromax and some I believe Cortisporin ear drops. She continues to have pain. Hurts when she lays down hurts in her left side of her head. She has no circumoral or periauricular rash. She has had no vesicular nature to her rash noted in prior exams by reviewing her chart. She has been taking Tylenol and tolerating that well although it is listed as an allergy. Also been taking ibuprofen. She is completing the Zithromax as mention. Does not seem like she is getting much improvement. She denies . Related Data Previous Rx's ?Medication ?Instructions ?Recorded azithromycin 250 mg tablet See Rx Instructions PO .COMPLEX #6 10/15/23 tabs Allergies Allergy/AdvReac Type Severity Reaction Status Date / Time terbutaline AdvReac Severe Agitated Verified 03/03/24 21:42 acetaminophen [From Vicodin] AdvReac Verified 03/03/24 21:42 hydrocodone [From Vicodin] AdvReac Verified 03/03/24 21:42 Penicillins AdvReac Verified 03/03/24 21:42 Review of Systems Status of ROS: Reports: 6 or more systems reviewed and unremarkable except as noted in History and below PFS PFS Social History Smoking Status: Never smoker Do you use any of these nicotine containing products: None Second hand tobacco smoke exposure: No How often do you have a drink containing alcohol: never AUDIT-C Alcohol total score: 0 Non-prescribed substance use: denies use service: No Exam Narrative: Exam Narrative: Objective: The patient's vital signs are within normal limits she is anxious and concerned about her ear Right ears clear left ear shows otitis externa some mild otitis media but mostly otitis externa with some ear canal swelling and the ear canal itself is smaller in caliber Procedure an ear wick was easily slid in the ear canal. Rest of HEENT unremarkable no facial asymmetry no vesicular nature to anything in the ear or around the ear Const: Vital Signs, click to edit/add: Vital Signs - 24 hr 03/05/24 11:11 Temperature 96.7 F L Pulse Rate [Pulse Oximeter] 89 Respiratory Rate 20 Blood Pressure [Ri ght Upper Arm] 113/75 Pulse Oximetry 97 Oxygen Delivery Me thod Room Air Course Vital Signs Vital signs: Initial Vital Signs Temperature 96.7 F L 03/05/24 11:11 Temperature Source Temporal Artery Scan 03/05/24 11:11 Pulse Rate 89 03/05/24 11:11 Respiratory Rate 20 03/05/24 11:11 Blood Pressure 113/75 03/05/24 11:11 Blood Pressure Mean 87 03/05/24 11:11 Blood Pressure Position Supine 03/05/24 11:11 Pulse Oximetry 97 03/05/24 11:11 Oxygen Delivery Method Room Air 03/05/24 11:11 Vital Signs Temperature 96.7 F L 03/05/24 11:11 Pulse Rate 89 03/05/24 11:11 Respiratory Rate 20 03/05/24 11:11 Blood Pressure 113/75 03/05/24 11:11 Pulse Oximetry 97 03/05/24 11:11 Oxygen Delivery Method Room Air 03/05/24 11:11 Temperature 96.7 F L 03/05/24 11:11 Pulse Rate 89 03/05/24 11:11 Respiratory Rate 20 03/05/24 11:11 Blood Pressure 113/75 03/05/24 11:11 Pulse Oximetry 97 03/05/24 11:11 Oxygen Delivery Method Room Air 03/05/24 11:11 Medications Administered Medications: Discontinued Medications Generic Name Dose Route Start Last Admin Trade Name Doreen PRN Reason Stop Dose Admin Ciprofloxacin 500 mg 03/05/24 11:23 03/05/24 11:36 Ciprofloxacin 500 Mg Tablet PO 03/05/24 11:24 500 mg ONCE ONE Administration Oxycodone/Acetaminophen 2 tab 03/05/24 11:23 03/05/24 11:36 Oxycodone/Apap 5-325 Tablet PO 03/05/24 11:24 2 tab ONCE ONE Administration Medical Decision Making MDM Narrative Medical decision making narrative: 43-year-old female with persistent otitis externa at this point I think she needs Ciprodex drops would be the ear in these through the ear wick on an aggressive basis perhaps 4-6 drops 4 times a day for a couple of days then 4 drops b.i.d.. A prescription was written for this as she has a male in pharmacy and maybe 0 pick this up locally. Secondly will refill Percocet given that she takes Tylenol she does not have a Tylenol allergy that she relates to me, and will give her 20 of these to use as needed, would also give her Cipro orally 500 b.i.d. times 7 days. Recommend recheck with primary care in the next couple of days certainly sooner return to ED problems or concerns. She is given Percocet in the ER and Cipro 500 orally. Patient demonstrates no facial paralysis, has no vesicular lesions such as with a Grover syndrome. I think simply changing antibiotic to Cipro and Cipro dex drops would be helpful for her otitis externa Discharge Plan Discharge Clinical Impression: Otitis externa Patient Disposition: Home w/ Parent or Adult Condition: Stable Additional Instructions: He have an ear wick placed in your ear, you can use drops that will be written out in a prescription for you, also recommend you finish the medicine here on but start Cipro 500 b.i.d. x7 days. Will refill some pain medication. Since you do not have allergy to Tylenol will use Percocet medication. Recommend he recheck with primary care in the next 2-3 days. Activity Level: Light activity Discharge Diet: Regular Prescriptions: No Action azithromycin 250 mg tablet See Rx Instructions .ROUTE .COMPLEX Qty: 6 0RF Rx Instructions: For 250 mg dose pack: take 500 mg today (day 1), then 250 mg for 4 days (days 2-5) Follow Up/Referrals: Provider,Not a Local [Primary Care Provider] - Stand Alone Forms: TCM [place] Info Instructions
== END 2024-03-05 11:48 | disposition home or self-care (01) ==
PROVIDERS: Emergency Provider Family Medicine
DX: H60.92 Unspecified otitis externa, left ear (principal)
CPT/HCPCS: 99283; A9270